=== PATIENT | male | born 1975 | race Caucasian/White ===

== ENCOUNTER 2017-08-04 20:58 | Emergency (ER) | payer SELFPAY ==
[2017-08-04 21:08] VITALS: BP 138/92
--- NOTE | 2017-08-04 23:42 | EDM.PDOC ---
ED HPI GENERAL MEDICAL PROBLEM - General Chief Complaint: Lower Extremity Injury/Pain Stated Complaint: POSS FOOT INJURY Time Seen by Provider: 08/04/17 21:05 Source of Information: Reports: Patient, Family (), RN Notes Reviewed History Limitations: Reports: No Limitations - History of Present Illness INITIAL COMMENTS - FREE TEXT/NARRATIVE: The patient states that he developed swelling, erythema, and pain to the dorsal/ lateral aspect of his left foot yesterday morning, 08/03/2017. He did not injure it. No prior similar symptoms. No recent fever. The patient's PCP is Aria Lopez. Left Feet Pain Score (Numeric/FACES): 8 - Related Data Allergies Allergy/AdvReac Type Severity Reaction Status Date / Time No Known Allergies Allergy Verified 08/04/17 21:04 Home Meds: Home Meds Lisinopril 30 mg PO DAILY 02/03/16 [History] atorvaSTATin Calcium [Atorvastatin Calcium] 80 mg PO BEDTIME 02/03/16 [History] metFORMIN [Glucophage] 1,000 mg PO BIDMEALS 02/03/16 [History] Metoprolol Succinate [Toprol XL] 50 mg PO DAILY 02/16/16 [History] Furosemide [Lasix] 40 mg PO DAILY 03/24/16 [History] Naproxen 1 tab PO Q12HR #14 tablet 03/24/16 [Rx] Past Medical History HEENT History: Reports: Impaired Vision Other HEENT History: wears contacts Cardiovascular History: Reports: High Cholesterol, Hypertension Gastrointestinal History: Reports: GERD 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 History: Reports: Renal Calculus Musculoskeletal History: Reports: Gout (Podagra) Endocrine/Metabolic History: Reports: Diabetes, Type II - Past Surgical History HEENT Surgical History: Reports: Tonsillectomy Musculoskeletal Surgical History: Reports: Other (See Below) (Right forearm surgery) Social & Family History - Tobacco Use Smoking Status *Q: Never Smoker Second Hand Smoke Exposure: No - Alcohol Use Alcohol Use History: Yes Alcohol Use Frequency: Socially - Recreational Drug Use Recreational Drug Use: No - Living Situation & Occupation Living situation: Reports: , with Spouse, with Family (6 kids) 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) Review of Systems - Review of Systems Review Of Systems: See Below Constitutional: Reports: No Symptoms Eyes: Reports: No Symptoms Ears: Reports: No Symptoms Nose: Reports: No Symptoms Mouth/Throat: Reports: No Symptoms Respiratory: Reports: No Symptoms Cardiovascular: Reports: No Symptoms GI/Abdominal: Reports: No Symptoms 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: Reports: No Symptoms Musculoskeletal: Reports: No Symptoms Skin: Reports: No Symptoms Neurological: Reports: No Symptoms Psychiatric: Reports: No Symptoms ED EXAM, GENERAL - Physical Exam Exam: See Below Exam Limited By: No Limitations General Appearance: Alert, WD/WN, No Apparent Distress Extremities: Other (Swollen and erythematous area to the dorsolateral aspect of the left foot, measuring approximate 5 cm diameter. It is quite tender to palpation. Neurovascular status of the left foot is intact.) Course - Vital Signs Last Recorded V/S: Last Vital Signs Temp 36.6 C 08/04/17 21:05 Pulse 108 H 08/04/17 21:05 Resp 16 08/04/17 21:05 BP 138/92 H 08/04/17 21:05 Pulse Ox 98 08/04/17 21:05 - Orders/Labs/Meds Orders: Active Orders 24 hr Category Date Time Status Foot Comp Min 3V Lt [CR] Stat Exams 08/04/17 21:27 Taken DME for Discharge [COMM] Stat Oth 08/04/17 23:49 Ordered Meds: Medications Discontinued Medications Generic Name Dose Route Start Last Admin Trade Name Freq PRN Reason Stop Dose Admin Ibuprofen 800 mg 08/04/17 23:43 Motrin PO 08/04/17 23:44 ONETIME ONE - Re-Assessments/Exams Free Text/Narrative Re-Assessment/Exam: 08/04/17 23:37 4 view radiographs of the left foot is read by [facility] as "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 The patient states that he might have had an injury 20 years ago when some furniture dropped on his foot , but he never had it evaluated. The patient's asked what could be done about it now. I am recommending that the patient take an [id number] NSAID , such as ibuprofen, and follow-up with Dr. Senior to discuss orthopedic options, if any. The patient shook his head, stating that he does not have insurance. I will have the patient fitted for a CAM walker boot. 08/04/17 23:50 Notified by nurse Menezes that the patient left the ED without waiting for the Cam Walker boot or his discharge instructions. Departure - Departure Time of Disposition: 23:45 Disposition: Home, Self-Care 01 Condition: Good Clinical Impression: Fracture of metatarsal bone of left foot with nonunion - Discharge Information Instructions: Metatarsal Fracture Referrals: Aria Lopez PA [Primary Care Provider] - Vishal Senior MD [Physician] - Forms: ED Department Discharge Additional Instructions: You were seen in the emergency room for a painful swelling and redness to the back of your left foot. Workup in the ER included x-rays of your foot. The x-rays show an old fracture of your 4th metatarsal bone that has never healed. Take [id number] ibuprofen 3-4 tablets (600-800mg) every 8 hours, with food , as needed for discomfort. Wear the Cam Walker boot whenever walking around. Follow-up with the Orthopedic Surgeon Dr. Senior to discuss treatment options. If any other problems, please do not hesitate to return to the ER. - My Orders Last 24 Hours: My Active Orders 08/04/17 21:27 Foot Comp Min 3V Lt [CR] Stat 08/04/17 23:49 DME for Discharge [COMM] Stat - Assessment/Plan Last 24 Hours: My Active Orders 08/04/17 21:27 Foot Comp Min 3V Lt [CR] Stat 08/04/17 23:49 DME for Discharge [COMM] Stat
[2017-08-04] MEDS ORDERED: Ibuprofen 800 MG Tab PO ONE (23:43)
--- NOTE | 2017-08-05 08:33 | CR ---
Left foot: Three views of the left foot were obtained. Fracture is identified within the base of the fourth metatarsal which appears to be ununited. Mild soft tissue swelling is noted. Small plantar spur is seen. No acute fracture is appreciated. Impression: 1. Ununited fracture which appears old involving the proximal shaft of the fourth metatarsal. 2. Soft tissue swelling and small plantar spur. Diagnostic code #3
== END 2017-08-04 23:45 | disposition home or self-care (01) ==
LOC: JD.ED 20:58
DX: S92.342A Displaced fracture of fourth metatarsal bone, left foot, initial encounter for closed fracture (principal); I10 Essential (primary) hypertension; E78.00 Pure hypercholesterolemia, unspecified; E11.9 Type 2 diabetes mellitus without complications; Z87.442 Personal history of urinary calculi; Z98.890 Other specified postprocedural states; Z79.84 Long term (current) use of oral hypoglycemic drugs; Z79.899 Other long term (current) drug therapy; W20.8XXA Other cause of strike by thrown, projected or falling object, initial encounter
CPT/HCPCS: 73630-26-LT; 73630-LT; 99283; 99284

== ENCOUNTER 2017-12-09 07:34 | Emergency (ER) | payer SELFPAY ==
[2017-12-09 07:42] VITALS: BP 128/91
--- NOTE | 2017-12-09 08:07 | EDM.PDOC ---
ED HPI GENERAL MEDICAL PROBLEM - General Chief Complaint: Skin Complaint Stated Complaint: SWOLLEN NECK Time Seen by Provider: 12/09/17 07:57 Source of Information: Reports: Patient History Limitations: Reports: No Limitations - History of Present Illness INITIAL COMMENTS - FREE TEXT/NARRATIVE: The patient presents with edema and pain to the left jaw near the ear. He noticed this about 2 days ago. He has sinus pressure and ear pressure. He has been dealing with a viral upper respiratory infection for about a week. He has no fever or chills. He has no pain in his teeth. He has sinus congestion and runny nose. He has no hearing loss. Onset: Gradual Duration: Day(s): (2) Location: Reports: Neck (and left proximal jaw) Quality: Reports: Sharp Severity: Moderate Improves with: Reports: None Worsens with: Reports: None Associated Symptoms: Reports: No Other Symptoms left posterior ear Pain Score (Numeric/FACES): 5 - Related Data Allergies Allergy/AdvReac Type Severity Reaction Status Date / Time No Known Allergies Allergy Verified 12/09/17 07:42 Home Meds: Home Meds Lisinopril 30 mg PO DAILY 02/03/16 [History] atorvaSTATin Calcium [Atorvastatin Calcium] 80 mg PO BEDTIME 02/03/16 [History] metFORMIN [Glucophage] 1,000 mg PO BIDMEALS 02/03/16 [History] Metoprolol Succinate [Toprol XL] 50 mg PO DAILY 02/16/16 [History] Furosemide [Lasix] 40 mg PO DAILY 03/24/16 [History] Amoxicillin 1,000 mg PO BID #40 tab 12/09/17 [Rx] Gabapentin [Neurontin] 100 mg PO TID 12/09/17 [History] Past Medical History HEENT History: Reports: Impaired Vision Other HEENT History: wears contacts Cardiovascular History: Reports: High Cholesterol, Hypertension Respiratory History: Reports: Bronchitis, Recurrent Gastrointestinal History: Reports: GERD 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 History: Reports: Renal Calculus Musculoskeletal History: Reports: Gout Endocrine/Metabolic History: Reports: Diabetes, Type II - Infectious Disease History Infectious Disease History: Reports: Influenza - Past Surgical History HEENT Surgical History: Reports: Tonsillectomy Social & Family History - Family History Family Medical History: Noncontributory - Tobacco Use Smoking Status *Q: Never Smoker Second Hand Smoke Exposure: No - Caffeine Use Caffeine Use: Reports: Coffee - Recreational Drug Use Recreational Drug Use: No - Living Situation & Occupation Living situation: Reports: , with Spouse, with Family (6 kids) 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 He has pain upon palpation and edema to the angle of the left jaw. He has sinus pressure upon palpation.) Head: Atraumatic, Normocephalic Neck: Normal Inspection Respiratory/Chest: No Respiratory Distress, Lungs Clear, Normal Breath Sounds Cardiovascular: Regular Rate, Rhythm, No Edema, No Murmur GI/Abdominal: Soft, Non-Tender, No Organomegaly, No Mass Extremities: Normal Inspection Neurological: Alert, Oriented, No Motor/Sensory Deficits Course - Vital Signs Last Recorded V/S: Last Vital Signs Temp 97.6 F 12/09/17 07:38 Pulse 73 12/09/17 07:38 Resp 18 12/09/17 07:38 BP 128/91 H 12/09/17 07:38 Pulse Ox 97 12/09/17 07:38 Departure - Departure Time of Disposition: 08:10 Disposition: Home, Self-Care 01 Condition: Good Clinical Impression: Reactive lymphadenopathy Sinusitis Qualifiers: Sinusitis location: unspecified location Chronicity: acute Recurrence: non- recurrent Qualified Code(s): J01.90 - Acute sinusitis, unspecified - Discharge Information Prescriptions: Amoxicillin 1,000 mg PO BID #40 tab Referrals: Aria Lopez PA [Primary Care Provider] - 1 Week Additional Instructions: Take tylenol or motrin for any pain. Take the amoxicillin 2 pills 2 times per day for 10 days. Please return if you are worse or see Aria Lopez.
== END 2017-12-09 08:25 | disposition home or self-care (01) ==
LOC: JD.ED 07:34
DX: J01.90 Acute sinusitis, unspecified (principal); E78.00 Pure hypercholesterolemia, unspecified; I10 Essential (primary) hypertension; E11.9 Type 2 diabetes mellitus without complications; Z79.899 Other long term (current) drug therapy; Z79.84 Long term (current) use of oral hypoglycemic drugs
CPT/HCPCS: 99283

== ENCOUNTER 2018-02-18 09:24 | Emergency (ER) | payer BC ==
[2018-02-18 09:31] VITALS: BP 134/99
[2018-02-18] MEDS ORDERED: Tetracaine HCl/PF 0.5% 4 ML Bottle EYERT ONE ×2 (09:39)
[2018-02-18] MEDS ORDERED: Erythromycin Base 0.5% Ophth Oint 1 GM Tube EYERT ONE (09:40)
[2018-02-18] MEDS ORDERED: Benoxinate/Fluorescein 0.4-0.25% Ophth Soln 5 ML Bottle EYERT SCH (09:45)
[2018-02-18] MEDS ORDERED: Fluorescein 0.6 MG Ophth Strip EYERT ONE (09:49)
[2018-02-18] MEDS ORDERED: Fluorescein 0.6 MG Ophth Strip ONE (09:50)
--- NOTE | 2018-02-18 10:10 | EDM.PDOC ---
ED HPI GENERAL MEDICAL PROBLEM - General Chief Complaint: Eye Problems Stated Complaint: RT EYE PAIN Time Seen by Provider: 02/18/18 09:40 Source of Information: Reports: Patient History Limitations: Reports: No Limitations - History of Present Illness INITIAL COMMENTS - FREE TEXT/NARRATIVE: 42 y/o M presents with R eye pain. He is a contact lens user. yesterday was driving and there was a lot of scoria dust. He thinks he got dust in his eye. He did rinse eye out when he got home. Has had increasing pain in the R eye since yesterday. Removed contact lens when he arrived home and has not replaced it. Has watery discharge of the eye. Also has some eye pain and photophobia. No additional complaint. No vision change Right Eye Pain Score (Numeric/FACES): 6 - Related Data Allergies Allergy/AdvReac Type Severity Reaction Status Date / Time No Known Allergies Allergy Verified 02/18/18 09:32 Home Meds: Home Meds Lisinopril 30 mg PO DAILY 02/03/16 [History] atorvaSTATin Calcium [Atorvastatin Calcium] 80 mg PO BEDTIME 02/03/16 [History] metFORMIN [Glucophage] 1,000 mg PO BIDMEALS 02/03/16 [History] Metoprolol Succinate [Toprol XL] 50 mg PO DAILY 02/16/16 [History] Furosemide [Lasix] 40 mg PO DAILY 03/24/16 [History] Ibuprofen [IJP: Ibuprofen] 800 mg PO .EVERY 8 HOURS PRN #30 tab 02/18/18 [Rx] Polymyxin B Sulf/Trimethoprim [Polytrim Eye Drops] 2 drp OP Q3HR 10 Days #1 bottle 02/18/18 [Rx] oxyCODONE 5 mg PO QID PRN #12 tab 02/18/18 [Rx] Past Medical History HEENT History: Reports: Impaired Vision Other HEENT History: wears contacts Cardiovascular History: Reports: High Cholesterol, Hypertension Respiratory History: Reports: Bronchitis, Recurrent Gastrointestinal History: Reports: GERD 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 History: Reports: Renal Calculus Musculoskeletal History: Reports: Gout Endocrine/Metabolic History: Reports: Diabetes, Type II - Infectious Disease History Infectious Disease History: Reports: Influenza - Past Surgical History HEENT Surgical History: Reports: Tonsillectomy Social & Family History - Family History Family Medical History: Noncontributory - Tobacco Use Smoking Status *Q: Never Smoker Second Hand Smoke Exposure: No - Caffeine Use Caffeine Use: Reports: Coffee - Recreational Drug Use Recreational Drug Use: No - Living Situation & Occupation Living situation: Reports: , with Spouse, with Family (6 kids) 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) ED ROS GENERAL - Review of Systems Review Of Systems: See Below Constitutional: Denies: Fever HEENT: Reports: Contact Lenses, Eye Pain Respiratory: Reports: No Symptoms Cardiovascular: Reports: No Symptoms Skin: Reports: No Symptoms ED EXAM GENERAL W FULL EYE - Physical Exam Exam: See Below Exam Limited By: No Limitations General Appearance: Alert, WD/WN, No Apparent Distress Eye Exam: Bilateral Eye: EOMI, PERRL Eyelids: Right: Normal Appearance (mild upper lid edema, no erythema), Lid Everted for Exam (no visible foreign body) Conjunctiva & Sclera: Right: Conjunctival Edema, Discharge (watery), Injected Cornea Exam: Right: Normal Appearance, Examined with Flourescein (punctate defect of central cornea, tiny, less than 1mm) Pupillary Reaction: Bilateral: Brisk Anterior Chamber: Bilateral: Normal Appearance Ears: Normal External Exam Nose: Normal Inspection Throat/Mouth: Normal Voice Head: Atraumatic, Normocephalic Neck: Normal Inspection Respiratory/Chest: No Respiratory Distress Psychiatric: Normal Affect, Normal Mood Skin Exam: Warm, Dry, Normal Color, No Rash Course - Vital Signs Last Recorded V/S: Last Vital Signs Temp 37.1 C 02/18/18 09:30 Pulse 90 02/18/18 09:30 Resp 17 02/18/18 09:30 BP 134/99 H 02/18/18 09:30 Pulse Ox 96 02/18/18 09:30 - Orders/Labs/Meds Meds: Medications Discontinued Medications Generic Name Dose Route Start Last Admin Trade Name Jaswinderq PRN Reason Stop Dose Admin Erythromycin 1 gm 02/18/18 09:40 02/18/18 09:45 Erythromycin 0.5% Ophth Oint EYERT 02/18/18 09:41 1 gm ONETIME ONE Administration Fluorescein Sodium Confirm 02/18/18 09:50 02/18/18 10:23 Ful-Blossom Administered 02/18/18 09:51 Not Given Dose 1.2 mg .ROUTE .STK-MED ONE Fluorescein Sodium 1.2 mg 02/18/18 09:49 02/18/18 10:29 Ful-Blossom EYERT 02/18/18 09:50 1.2 mg ONETIME ONE Administration Fluorescein Sodium/Benoxinate HCl 2 ml 02/18/18 09:45 02/18/18 09:46 Fluress Ophth Soln EYERT Not Given STAT JAD Tetracaine HCl 2 ml 02/18/18 09:39 02/18/18 09:46 Tetracaine 0.5% Steri-Unit Aziza EYERT 02/18/18 09:40 Not Given ASDIRECTED ONE Tetracaine HCl 3 ml 02/18/18 09:39 02/18/18 09:45 Tetracaine 0.5% Steri-Unit Aziza EYERT 02/18/18 09:40 3 ml ASDIRECTED ONE Administration - Re-Assessments/Exams Free Text/Narrative Re-Assessment/Exam: 02/18/18 10:35 Patient does have a punctate corneal abrasion centered directly over the pupil. I think this could be contributing to his photophobia. He also has conjunctival injection/inflammation and watery discharge. Will treat with polytrim, pain control, and [facility] eye doctor f/u. Discussed return precautions for any worsening symptoms. Departure - Departure Time of Disposition: 10:37 Disposition: Home, Self-Care 01 Clinical Impression: Conjunctivitis Qualifiers: Conjunctivitis type: acute Acute conjunctivitis type: unspecified Laterality: right Qualified Code(s): H10.31 - Unspecified acute conjunctivitis, right eye Corneal abrasion Qualifiers: Encounter type: initial encounter Laterality: right Qualified Code(s): S05.01XA - Injury of conjunctiva and corneal abrasion without foreign body, right eye, initial encounter - Discharge Information Prescriptions: Polymyxin B Sulf/Trimethoprim [Polytrim Eye Drops] 2 drp OP Q3HR 10 Days #1 bottle Ibuprofen [IJP: Ibuprofen] 800 mg PO .EVERY 8 HOURS PRN #30 tab PRN Reason: Pain oxyCODONE 5 mg PO QID PRN #12 tab PRN Reason: Pain Instructions: Corneal Abrasion, [id number] Referrals: Aria Lopez PA [Primary Care Provider] - Forms: ED Department Discharge Additional Instructions: 1. Use polytrim antibiotic drops every 3 hours while awake 2. Take ibuprofen as needed for pain. Take oxycodone as needed for severe pain. No driving/working while taking oxycodone as it may make you drowsy or confused. 3. Follow up with your eye doctor as soon as possible, ideally tomorrow. 4. No contact lens use until eye has been back to normal for at least a few days , or until cleared by your eye doctor.
== END 2018-02-18 10:34 | disposition home or self-care (01) ==
LOC: JD.ED 09:24
DX: S05.01XA Injury of conjunctiva and corneal abrasion without foreign body, right eye, initial encounter (principal); H10.31 Unspecified acute conjunctivitis, right eye; E78.00 Pure hypercholesterolemia, unspecified; I10 Essential (primary) hypertension; E11.9 Type 2 diabetes mellitus without complications; Z79.84 Long term (current) use of oral hypoglycemic drugs; Z79.899 Other long term (current) drug therapy; X58.XXXA Exposure to other specified factors, initial encounter
CPT/HCPCS: 99283; A9270

== ENCOUNTER 2019-02-25 18:36 | Emergency (ER) | payer OTHER, BC ==
[2019-02-25 18:56] VITALS: BP 129/88
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
--- NOTE | 2019-02-25 20:05 | CT ---
CT cervical spine Technique: Multiple axial sections through the cervical spine were obtained from above C1 inferiorly to the top of T2. Reconstructed coronal and sagittal images were reviewed. Comparison: Previous cervical spine plain film study performed on the same day (6:32 PM). Findings: Diffuse disc space narrowing is noted at C3-4 through T1-2. Anterior osteophytes are seen at these same levels. Slight posterior osteophytes at C5-6 and C6-7. Fracture is noted within the tip of the spinous process of T1. Uncertain if this is acute or old. No other findings are seen to indicate acute fracture. Incomplete arch is noted posteriorly at C1. Mild diffuse degenerative apophyseal change is seen throughout the cervical spine. Posterolateral spurring is noted at C3-4 to the right side. Moderate narrowing of the right neural foramina noted at C5-6. Mild left-sided neural foraminal stenosis is noted at C6-7. Other neural foramina are felt to be fairly well patent. No abnormal subluxation is seen. Degenerative spurring is noted within the C3-4 through C6-7 uncovertebral joints. Impression: 1. Fracture within the tip of the spinous process of T1. Uncertain if this is due to old or acute avulsion injury. Please correlate with the patient's symptoms. 2. Degenerative change as noted above. No other acute abnormality is appreciated. Diagnostic code #3
--- NOTE | 2019-02-25 20:05 | CT ---
Head CT Technique: Multiple axial sections through the brain were obtained. Intravenous contrast was not utilized. Comparison: No prior intracranial imaging. Findings: Ventricles along with basal cisterns and sulci over the convexities are within normal limits for the patient's age. No abnormal parenchymal densities are seen. No evidence of intracranial hemorrhage. No midline shift or mass effect is seen. Bone window settings were reviewed which shows no acute calvarial abnormality. Mucosal thickening or possibly retention cyst is noted within the left maxillary sinus measuring 1.9 cm. Very minimal mucosal thickening is seen within the right maxillary sinus. No air-fluid level are seen within the paranasal sinuses. Impression: 1. Minimal sinus findings which are felt to be incidental. 2. No acute intracranial abnormality is appreciated. No skull fracture is seen. Diagnostic code #2
--- NOTE | 2019-02-26 08:26 | CR ---
Thoracic spine: AP, lateral and swimmer's views of the thoracic spine were obtained. Disc space narrowing is seen within the cervical spine as well as throughout the thoracic spine. Mild scoliosis is noted. Scattered endplate osteophytes are seen within the thoracic spine anteriorly and laterally. Vertebral body heights are maintained. No discrete fracture or subluxation is appreciated. Impression: 1. Degenerative change and scoliosis. Nothing acute is definitely appreciated. Diagnostic code #2
== END 2019-02-25 20:41 | disposition home or self-care (01) ==
LOC: JD.ED 18:36
DX: S22.008A Other fracture of unspecified thoracic vertebra, initial encounter for closed fracture (principal); S09.90XA Unspecified injury of head, initial encounter; S13.9XXA Sprain of joints and ligaments of unspecified parts of neck, initial encounter; G58.8 Other specified mononeuropathies; E78.00 Pure hypercholesterolemia, unspecified; R42 Dizziness and giddiness; R20.0 Anesthesia of skin; I10 Essential (primary) hypertension; E11.9 Type 2 diabetes mellitus without complications; R11.2 Nausea with vomiting, unspecified; Z79.899 Other long term (current) drug therapy; Z79.84 Long term (current) use of oral hypoglycemic drugs; V57.5XXA Driver of pick-up truck or van injured in collision with fixed or stationary object in traffic accident, initial encounter
CPT/HCPCS: 70450; 70450-26; 72070; 72070-26; 72125; 72125-26; 99283; 99284-25

== ENCOUNTER 2020-03-17 15:46 | Emergency (ER) | payer BC ==
[2020-03-17 16:02] VITALS: BP 149/89; PULSE 95
[2020-03-17] MEDS ORDERED: Colchicine 0.6 MG Tab PO STA (16:17)
[2020-03-17] MEDS ORDERED: Acetaminophen/HYDROcodone 325-5 MG Tab PO ONE (16:19)
--- NOTE | 2020-03-17 16:26 | EDM.PDOC ---
ED HPI GENERAL MEDICAL PROBLEM - General Chief Complaint: Lower Extremity Injury/Pain Stated Complaint: RT FOOT ANKLE AND KNEE SWELLING Time Seen by Provider: 03/17/20 15:57 Source of Information: Reports: Patient History Limitations: Reports: No Limitations - History of Present Illness INITIAL COMMENTS - FREE TEXT/NARRATIVE: Mr. Nj is a very pleasant 44-year-old man with a past medical history significant for obesity, diabetes, and presumed gout, who now presents to the ED stating that he developed right great toe pain 2 days ago, 03/16/2020, with the pain then extending to his right foot, ankle, and knee yesterday. The patient has had similar right great toe pain in the past, presumably due to gout , although he has never had an inflamed joint aspirated. Because of this, he had been prescribed a 30-day course of colchicine 0.6 mg daily that he started on or about 02/05/2020, finishing about 03/05/2020. He did not realize it until yesterday, but he had 2 pills remaining, which he took along with 600 mg of ibuprofen yesterday. These medicines did not help with his pain. No recent injury to his right lower extremity. No recent fever. He denies recent chills, sore throat, ear pain, nasal or sinus congestion, cough, dyspnea , chest pain, palpitations, nausea, vomiting, constipation, diarrhea, abdominal pain, urinary symptoms, recent weight gain or weight loss, recent bloody bowel movements or black bowel movements, headaches, or rashes. Here in the ED, the patient is found to be hemodynamically stable, afebrile, saturating 98% on room air. The patient states that he has never checked his blood glucose. The patient's PCP is Dr. Mounika Blanchard. Right Toe-Hailux Pain Score (Numeric/FACES): 8 - Related Data Allergies Allergy/AdvReac Type Severity Reaction Status Date / Time No Known Allergies Allergy Verified 03/17/20 16:02 Home Meds: Home Meds Lisinopril 30 mg PO DAILY 02/03/16 [History] metFORMIN [Glucophage] 1,000 mg PO BIDMEALS 02/03/16 [History] Metoprolol Succinate [Toprol XL] 50 mg PO DAILY 02/16/16 [History] Furosemide [Lasix] 40 mg PO DAILY 03/24/16 [History] Celecoxib [CeleBREX] 50 mg PO DAILY 02/25/19 [History] DULoxetine [Cymbalta] 90 mg PO DAILY 02/25/19 [History] Rosuvastatin [Crestor] 5 mg PO DAILY 02/25/19 [History] busPIRone [Buspar] 10 mg PO BID 02/25/19 [History] Colchicine 1 tab PO Q12H PRN #10 capsule 03/17/20 [Rx] Esomeprazole Magnesium [Nexium] 40 mg PO DAILY 03/17/20 [History] Glucosamine/Chondr Miranda A Sod [Osteo Bi-Flex Caplet] 1 each PO DAILY 03/17/20 [ History] Past Medical History HEENT History: Reports: Impaired Vision Other HEENT History: wears contacts Cardiovascular History: Reports: High Cholesterol, Hypertension Respiratory History: Reports: Sleep Apnea (nightly CPAP) Gastrointestinal History: Reports: GERD 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 History: Reports: Renal Calculus Musculoskeletal History: Reports: Gout (presumed) Psychiatric History: Reports: Anxiety, Depression Endocrine/Metabolic History: Reports: Diabetes, Type II, Obesity/BMI 30+ - Infectious Disease History Infectious Disease History: Reports: Influenza - Past Surgical History HEENT Surgical History: Reports: Tonsillectomy Musculoskeletal Surgical History: Reports: Other (See Below) (Right forearm surgery) Social & Family History - Family History Family Medical History: Noncontributory - Tobacco Use Smoking Status *Q: Never Smoker - Caffeine Use Caffeine Use: Reports: Coffee - Alcohol Use Alcohol Use History: Yes Alcohol Use Frequency: Socially - Recreational Drug Use Recreational Drug Use: No - Living Situation & Occupation Living situation: Reports: , with Spouse, with Family (6 kids) 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 ED EXAM, GENERAL - Physical Exam Exam: See Below Exam Limited By: No Limitations General Appearance: Alert, WD/WN, No Apparent Distress Extremities: Other (There is mild swelling and mild erythema to the right great MTP joint, that is not present on the left great MTP joint. The joint is exquisitely tender to palpate, particularly on the medial aspect, or with even minor PROM. No visible abnormality to his right ankle, however, he reports significant tenderness to palpation of the medial aspect of his anterior syndesmosis. No other ankle tenderness. The patient also reports tenderness to palpation of his right patella, although there is no visible abnormality to his right knee, such as swelling, erythema, ecchymosis, or abrasion. Neurovascular status of his right lower extremity is intact.) Course - Vital Signs Last Recorded V/S: Last Vital Signs Temp 36.4 C 03/17/20 15:59 Pulse 95 03/17/20 15:59 Resp 16 03/17/20 15:59 BP 149/89 H 03/17/20 15:59 Pulse Ox 98 03/17/20 15:59 - Orders/Labs/Meds Orders: Active Orders 24 hr Category Date Time Status Acetaminophen/HYDROcodone [Bode 325-5 MG] Med 03/17/20 16:19 Once 2 tab PO ONETIME ONE Meds: Medications Discontinued Medications Generic Name Dose Route Start Last Admin Trade Name Freq PRN Reason Stop Dose Admin Colchicine 1.2 mg 03/17/20 16:17 Colcrys PO 03/17/20 16:18 ONETIME STA - Re-Assessments/Exams Free Text/Narrative Re-Assessment/Exam: 03/17/20 16:20 The patient's history and physical examination are most consistent with an acute flare of gout. Because of the patient's history of diabetes, I would prefer to avoid treatment with steroids, and the patient agreed. Ideally, he would have taken 2 tablets of colchicine upfront yesterday, followed by a third tablet, for a total of 1.8 mg, however, he did not have a third tablet available. We will therefore restart his treatment today by giving him 2 tablets of colchicine now, to be followed by a third tablet that we will send home with him, to take in about 1 hour. I will submit a prescription for colchicine, 1 tablet once or twice a day, that he can start tomorrow and continue until he is feeling better. The patient will also be given 2 tablets of Bode here in the ED. I would like him to follow-up with his PCP at the next available appointment. Departure - Departure Time of Disposition: 16:24 Disposition: Home, Self-Care 01 Condition: Good Clinical Impression: Gout flare - Discharge Information *PRESCRIPTION DRUG MONITORING PROGRAM REVIEWED*: Not Applicable *COPY OF PRESCRIPTION DRUG MONITORING REPORT IN PATIENT LUCY: Not Applicable Referrals: Mounika Blanchard MD [Primary Care Provider] - Additional Instructions: You were seen in the emergency room for right great toe pain, that has extended to your right foot and right knee. Based on your history and physical exam, you are most likely suffering from an acute flare of gout. You have been started on the anti-gout medicine colchicine. You were given 1 additional tablet to take home, that you should take around 5:30 this evening. A prescription for colchicine has been sent to the [facility], located in the [employer] [facility]. Take 1 tablet of colchicine either once or twice a day , for the next several days, until your symptoms have resolved. In addition to colchicine, you may also take saht-doe-xvrelri ibuprofen, 3 tablets (600 mg) every 8 hours, with food, as needed for discomfort. Follow-up with your PCP, Dr. Mounika Blanchard, at the next available appointment. If any other problems, please do not hesitate to return to the ER. Sepsis Event Note - Evaluation Sepsis Screening Result: No Definite Risk - Focused Exam Vital Signs: Vital Signs Temp Pulse Resp BP Pulse Ox 03/17/20 15:59 36.4 C 95 16 149/89 H 98 Date Exam was Performed: 03/17/20 Time Exam was Performed: 16:20 - My Orders Last 24 Hours: My Active Orders 03/17/20 16:19 Acetaminophen/HYDROcodone [Bode 325-5 MG] 2 tab PO ONETIME ONE - Assessment/Plan Last 24 Hours: My Active Orders 03/17/20 16:19 Acetaminophen/HYDROcodone [Bode 325-5 MG] 2 tab PO ONETIME ONE
[2020-03-17] MEDS ORDERED: Colchicine 0.6 MG Tab PO ONE (16:28)
== END 2020-03-17 16:59 | disposition home or self-care (01) ==
LOC: JD.ED 15:46
DX: M10.9 Gout, unspecified (principal); I10 Essential (primary) hypertension; E11.9 Type 2 diabetes mellitus without complications; E78.00 Pure hypercholesterolemia, unspecified; K21.9 Gastro-esophageal reflux disease without esophagitis; F41.9 Anxiety disorder, unspecified; F32.9 Major depressive disorder, single episode, unspecified; E66.9 Obesity, unspecified; Z68.41 Body mass index [BMI] 40.0-44.9, adult; Z79.899 Other long term (current) drug therapy; Z79.84 Long term (current) use of oral hypoglycemic drugs
CPT/HCPCS: 99283; A9270

== ENCOUNTER 2020-10-21 06:13 | Day surgery (SDC) | payer BC ==
[~2020-10-21 06:13] MED LIST: Lactated Ringers 1,000 ML IV SCH; Lidocaine 1%/Sod Bicarbonate in NS 8.4% 1 ML Syringe IDERM PRN; Sodium Chloride 0.9% 10 ML Syringe FLUSH PRN
[2020-10-21] MEDS ORDERED: Ropivacaine 0.5% 5 MG/ML 30 ML SDV ONE (06:27)
[2020-10-21] MEDS ORDERED: fentaNYL 100 MCG/2 ML SDV ONE (06:29)
[2020-10-21] MEDS ORDERED: Midazolam 1 MG/ML 2 ML SDV ONE (06:29)
[2020-10-21] MEDS ORDERED: Propofol 200 MG/20 ML SDV ONE (06:29)
[2020-10-21] MEDS ORDERED: Lidocaine 1% 6 ML ONE (06:30)
[2020-10-21] MEDS ORDERED: Succinylcholine/Sod PF 100 MG/5 ML SYRINGE IV ONE (06:36)
--- NOTE | 2020-10-21 06:51 | PCM.PREANE ---
Preanesthetic Assessment - Procedure Proposed Procedure: Left shoulder arthroscopy - Anesthesia/Transfusion/Family Hx Intubation History: History of Difficulty Intubation - Review of Systems General: No Symptoms Pulmonary: No Symptoms Cardiovascular: No Symptoms Gastrointestinal: No Symptoms Neurological: No Symptoms Other: Reports: None - Physical Assessment NPO Status Date: 10/20/20 NPO Status Time: 21:00 ASA Class: 3 Mental Status: Alert & Oriented x3 Airway Class: Mallampati = 4 Dentition: Reports: Normal Dentition Thyro-Mental Finger Breadths: 3 Mouth Opening Finger Breadths: 3 ROM/Head Extension: Limited/Partial (short neck, redundant tissues, difficult a/w possible) Lungs: Clear to Auscultation, Normal Respiratory Effort Cardiovascular: Regular Rate, Regular Rhythm - Lab Values: Laboratory Last Values POC Glucose 114 mg/dL (70-105) H 10/21/20 06:28 SARS-CoV-2 (PCR) Not detected (NOT DETECT) 10/17/20 11:30 MRSA (PCR) Negative 10/18/20 10:20 - Allergies Allergies/Adverse Reactions: Allergies Allergy/AdvReac Type Severity Reaction Status Date / Time meloxicam [From [facility]] AdvReac "kidney Verified 10/21/20 07:01 concerns" - Anesthesia Plan Beta Sammy: Metoprolol Med Last Dose Date: 10/21/20 Med Last Dose Time: 05:30 - Acknowledgements Anesthesia Type Planned: General Anesthesia, Regional Block Pt an Appropriate Candidate for the Planned Anesthesia: Yes Alternatives and Risks of Anesthesia Discussed w Pt/Guardian: Yes Pt/Guardian Understands and Agrees with Anesthesia Plan: Yes PreAnesthesia Questionnaire HEENT History: Reports: Allergic Rhinitis, Impaired Vision Other HEENT History: wears contacts/glasses Cardiovascular History: Reports: High Cholesterol, Hypertension, Other (See Below) Other Cardiovascular History: chest pain, angiogram (negative) Respiratory History: Reports: Sleep Apnea Gastrointestinal History: Reports: Chronic Constipation, GERD, Other (See Below) Other Gastrointestinal History: bloating, acid reflux, anal fistula, transaminitis 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 History: Reports: Renal Calculus [employer] TECHNICAL LEAD History: Reports: None Musculoskeletal History: Reports: Gout, Other (See Below) Other Musculoskeletal History: ac joint bone spurs, foot pain, elbow pain, bilateral hip pain, bilateral shoulder pain, rotator cuff impingement, right lateral epicondylitis, ankle pain and swelling, foot injury, metarsal bone fracture Neurological History: Reports: None Psychiatric History: Reports: Anxiety, Depression, Other (See Below) Other Psychiatric History: insomnia, fatigue, panic attacks Endocrine/Metabolic History: Reports: Diabetes, Type II, Obesity/BMI 30+, Vitamin D Deficiency, Other (See Below) Other Endocrine/Metabolic History: metabolic syndrome Hematologic History: Reports: None Immunologic History: Reports: None Oncologic (Cancer) History: Reports: None Dermatologic History: Reports: None - Infectious Disease History Infectious Disease History: Reports: Influenza - Past Surgical History Head Surgeries/Procedures: Reports: None HEENT Surgical History: Reports: Myringotomy w Tube(s), Tonsillectomy Cardiovascular Surgical History: Reports: None Respiratory Surgical History: Reports: None GI Surgical History: Reports: None Female Surgical History: Reports: None Male Surgical History: Reports: None Endocrine Surgical History: Reports: None Neurological Surgical History: Reports: None Musculoskeletal Surgical History: Reports: Other (See Below) Other Musculoskeletal Surgeries/Procedures:: right arm surgery Oncologic Surgical History: Reports: None - SUBSTANCE USE Tobacco Use Status *Q: Never Tobacco User Recreational Drug Use History: No - HOME MEDS Home Medications: Home Meds metFORMIN [Glucophage] 1,000 mg PO BIDMEALS 02/03/16 [History] Metoprolol Succinate [Toprol XL] 50 mg PO DAILY 02/16/16 [History] Furosemide [Lasix] 40 mg PO DAILY 03/24/16 [History] DULoxetine [Cymbalta] 30 mg PO DAILY 02/25/19 [History] ALPRAZolam [Xanax] 0.5 - 1 mg PO DAILY PRN 10/18/20 [History] Celecoxib 200 mg PO BID 10/18/20 [History] DULoxetine [Cymbalta] 60 mg PO DAILY 10/18/20 [History] Ibuprofen 200 - 600 mg PO Q6HR PRN 10/18/20 [History] Magnesium 250 mg PO DAILY 10/18/20 [History] Multivitamin 1 tab PO DAILY 10/18/20 [History] Pantoprazole Sodium [Protonix] 40 mg PO DAILY 10/18/20 [History] Potassium Gluconate [Potassium] 99 mg PO DAILY 10/18/20 [History] Rosuvastatin Calcium [Crestor] 40 mg PO DAILY 10/18/20 [History] busPIRone [Buspar] 15 mg PO DAILY 10/18/20 [History] lisinopriL [Lisinopril] 40 mg PO DAILY 10/18/20 [History] Acetaminophen [Tylenol] 650 mg PO Q4H PRN #0 10/21/20 [Rx] Acetaminophen/HYDROcodone [[place] 325-5 MG] 1 - 2 tab PO Q6H PRN #30 tablet 10/21/20 [Rx] Cyclobenzaprine [Flexeril] 10 mg PO BID PRN #10 tab 10/21/20 [Rx] traMADol [Ultram] 50 mg PO QID PRN #0 10/21/20 [Rx] - CURRENT (IN HOUSE) MEDS Current Meds: Current Medications Epinephrine HCl (Adrenalin) 3 mg IRR ONETIME JAD Stop: 10/21/20 16:00 Lactated Ringer's (Ringers, Lactated) 1,000 mls @ 125 mls/hr IV ASDIRECTED JAD Stop: 10/21/20 23:00 Lidocaine/Sodium Bicarbonate (Buffered Lidocaine 1% In Ns 8.4%) 0.25 ml IDERM ONETIME PRN PRN Reason: Prior to IV Start Stop: 10/21/20 18:00 Sodium Chloride (Saline Flush) 10 ml FLUSH ASDIRECTED PRN PRN Reason: Keep Vein Open Stop: 10/21/20 18:00 Discontinued Medications Fentanyl (Sublimaze) Confirm Administered Dose 100 mcg .ROUTE .STK-MED ONE Stop: 10/21/20 06:30 Lidocaine HCl (Xylocaine-Mpf 1%) Confirm Administered Dose 6 mls @ as directed .ROUTE .STK-MED ONE Stop: 10/21/20 06:31 Midazolam HCl (Versed 1 Mg/Ml) Confirm Administered Dose 6 mg .ROUTE .STK-MED ONE Stop: 10/21/20 06:30 Propofol (Diprivan 20 Ml) Confirm Administered Dose 400 mg .ROUTE .STK-MED ONE Stop: 10/21/20 06:30 Ropivacaine (Naropin 0.5%) Confirm Administered Dose 30 ml .ROUTE .STK-MED ONE Stop: 10/21/20 06:28
[2020-10-21] MEDS ORDERED: EPINEPHrine 1 MG/ML 30 ML MDV IRR SCH (07:00)
[2020-10-21] MEDS ORDERED: Lactated Ringers 1,000 ML ONE (08:15)
[2020-10-21] MEDS ORDERED: ceFAZolin 1 GM Vial ONE (08:16)
[2020-10-21] MEDS ORDERED: Dexmedetomidine 200 MCG/2 ML SDV ONE (08:36)
[2020-10-21] MEDS ORDERED: Ondansetron 4 MG/2 ML SDV ONE (08:36)
[2020-10-21] MEDS ORDERED: Dexamethasone 4 MG/ML 5 ML MDV ONE (08:37)
--- NOTE | 2020-10-21 09:09 | PCM.PRNOTE ---
- Free Text/Narrative Note: Postoperative regional pain control requested by surgeon. Pre-op Dx: Left shoulder rotator cuff tear Surgical procedure: Left shoulder arthroscopy with rotator cuff repair Procedure: Left Interscalene block with U/S guidance Requesting physician: Dr. Vishal Marquez� Risks and benefits discussed with the patient preoperatively including infection, bleeding, incomplete or failed block, possible nerve damage, local anesthetic toxicity. Chart reviewed, VS stable. Permit signed. Patient in preoperative room, stable , alert and awake. Time out performed at 07:17. Oxygen 3L via NC. Left side of the neck was prepped with Chloraprep x 1 and allowed to dry. Midazolam IV 4 mg given incrementally. Under aseptic technique, the brachial plexus was identified under ultrasound prior to needle insertion. Local infiltration with 2 mls of 1% Lidocaine. 4" Stimuplex needle #22 G was inserted under US guidance. Neuromuscular response of biceps contraction and forearm twitching elicited at 0.6 mA. Under direct visualization of needle tip the injection of 0.5% Ropivacaine (23 ml) with 1:200k epinephrine, 8 mg of Dexamethasone and 35 mcg of Dexmedetomidine, total of 25 mls in divided doses, maintaining negative aspiration was completed without problems. No local anesthetic toxicity was noted. Patient is awake, stable and tolerated the procedure well. Start: 07:17 End: 07:27 Please see the attached U/S image
[2020-10-21] MEDS ORDERED: HYDROmorphone 0.5 MG/0.5 ML Syringe IVPUSH PRN (09:11)
[2020-10-21] MEDS ORDERED: fentaNYL 100 MCG/2 ML SDV IVPUSH PRN (09:11)
--- NOTE | 2020-10-21 10:16 | PCM.POSTAN ---
POST ANESTHESIA ASSESSMENT - MENTAL STATUS Mental Status: Somnolent - VITAL SIGNS Vital Signs: Last Vital Signs Temp 96.8 F L 10/21/20 10:06 Pulse 91 10/21/20 10:06 Resp 25 H 10/21/20 10:06 BP 138/73 10/21/20 10:06 Pulse Ox 93 L 10/21/20 10:06 - RESPIRATORY Respiratory Status: Respiratory Rate WNL, Airway Patent, O2 Saturation Stable, Supplemental Oxygen (CPAP is being set by RT) - CARDIOVASCULAR CV Status: Pulse Rate WNL, Blood Pressure Stable - GASTROINTESTINAL GI Status: No Symptoms - PAIN Pain Score: 0 (post ISB) - POST OP HYDRATION Hydration Status: Adequate & Stable
[2020-10-21 13:17] VITALS: BP 114/74; PULSE 78
--- NOTE | 2020-10-21 13:33 | PCM48HPAN ---
Post Anesthesia Note - EVALUATION WITHIN 48HRS OF ANESTHETIC Vital Signs in Normal Range: Yes Patient Participated in Evaluation: Yes Respiratory Function Stable: Yes (94% SpO2 on CPAP) Airway Patent: Yes Cardiovascular Function Stable: Yes Hydration Status Stable: Yes Pain Control Satisfactory: Yes Nausea and Vomiting Control Satisfactory: Yes Mental Status Recovered: Yes Vital Signs: Last Vital Signs Temp 97.2 F 10/21/20 12:57 Pulse 78 10/21/20 12:57 Resp 17 10/21/20 12:57 BP 114/74 10/21/20 12:57 Pulse Ox 94 L 10/21/20 12:57 - COMMENTS/OBSERVATIONS Free Text/Narrative:: Preparing to be discharged home
--- NOTE | 2020-10-29 22:01 | PCM.OPNOTE ---
- General Post-Op/Procedure Note Date of Surgery/Procedure: 10/21/20 Operative Procedure(s): left shoulder video arthroscopy with rotator cuff repair, subacromial decompression, biceps tenotomy and extensive debridement Pre Op Diagnosis: left shoulder rotator cuff tear with synovitis and subacromial impingement with biceps tendinitis Post-Op Diagnosis: Same Anesthesia Technique: General ET Tube, Regional Block Primary Surgeon: Vishal Senior Anesthesia Provider: Alex Gutierrez Demand Planner: Massiel Trevizo EBL in mLs: 5 Complications: None Condition: Good
--- NOTE | 2020-10-30 16:03 | OR ---
DATE OF OPERATION: 10/21/2020 SURGEON: Vishal Senior MD OPERATION PERFORMED: Left shoulder video arthroscopy with rotator cuff repair, subacromial decompression, biceps tenotomy, and extensive debridement. PREOPERATIVE DIAGNOSIS: Left shoulder rotator cuff tear with synovitis and subacromial impingement with biceps tendinitis. POSTOPERATIVE DIAGNOSIS: Left shoulder rotator cuff tear with synovitis and subacromial impingement with biceps tendinitis. ANESTHESIA: General endotracheal intubation with regional interscalene block. ANESTHESIA PROVIDER: Miranda Conway [employer] EXAMINER: Massiel Trevizo PA-C ESTIMATED BLOOD LOSS: Less than 5 mL. COMPLICATIONS: None. CONDITION: Stable. DESCRIPTION OF PROCEDURE: The patient was identified in the preoperative holding area. Proper site was marked and identified by the surgeon. The patient was taken back to the operating theater, where after adequate anesthesia, the patient was placed in the lazy right lateral decubitus position. Wedge was placed posteriorly. The patient was secured to the table. It did take significantly more time positioning the patient secondary to his BMI and body habitus. At this time, left upper extremity was sterilely prepped and draped in the usual sterile fashion. OR time-out was performed. The patient received 2 g of IV Ancef, 15 pounds of traction was applied to the left upper extremity. Standard posterior incision was made. Scope trocar was introduced to the glenohumeral joint. The patient did have a minor amount of grade 2 chondromalacia of the central portion of the glenoid, but otherwise no signs of chondromalacia. The patient's biceps tendon was significantly partially torn near its attachment. At this time, an anterior portal was created with the use of a spinal needle from outside-in technique, which we had to use a longer spinal needle secondary to the patient's body habitus and was significantly more difficult with use of longer instruments. At this time, a biceps tenotomy was performed and a significant extensive debridement was done of the synovitis as well as remaining loose fibers of the labrum. Subscapularis tendon was intact, and there was no other pathology in the joint. The patient was noted to have a near full-thickness rotator cuff tear of the anterior supraspinatus. The scope trocar was then placed into the subacromial space. Anterior portal was placed in subacromial space. A lateral portal was created. At this time, a good bony bleeding bed was created for the tear. All nonviable fibers were resected out and debrided out. The patient was noted to have type 2 acromion so the patient also did undergo subacromial decompression and acromioplasty back to a smooth border with the posterior rim. Two Giovanny medial row anchors, all suture anchors, were placed medially. The 10 limbs of suture then were brought from anterior to posterior with good convergence of the tear. At this time, I decided I would tie all of these medially, cutting 1 limb and then bringing the remaining suture limbs out laterally through 1 lateral row anchor. At this time, it was decided then we would do 2 lateral row anchors, so we did end up doing 2 lateral row anchors. These were then tensioned. Both lateral row anchors were placed. They were sequentially tensioned and was found to have adequate compression across the repair site. The patient did undergo a bursectomy in the subacromial space at this time as well. Excess saline was drained from the shoulder. A 3-0 nylon suture was used for closure of the skin. The patient was placed in a sterile soft dressing and a pillow sling and sent to the PACU in stable condition. Please note that this was a significantly more difficult procedure secondary to the patient's body habitus and use of larger instruments for the procedure secondary to his BMI. MEAGAN /[id number]
== END 2020-10-21 13:11 | disposition home or self-care (01) ==
LOC: JD.SDS 06:13
PROVIDERS: ATTEND Orthopaedic Surgery
DX: M75.122 Complete rotator cuff tear or rupture of left shoulder, not specified as traumatic (principal); M65.812 Other synovitis and tenosynovitis, left shoulder; M25.812 Other specified joint disorders, left shoulder; M75.52 Bursitis of left shoulder; K21.9 Gastro-esophageal reflux disease without esophagitis; I10 Essential (primary) hypertension; E11.9 Type 2 diabetes mellitus without complications; G47.33 Obstructive sleep apnea (adult) (pediatric); E78.2 Mixed hyperlipidemia; E66.01 Morbid (severe) obesity due to excess calories; Z01.812 Encounter for preprocedural laboratory examination; Z20.828 Contact with and (suspected) exposure to other viral communicable diseases; E55.9 Vitamin D deficiency, unspecified; F41.9 Anxiety disorder, unspecified; F32.9 Major depressive disorder, single episode, unspecified; Z79.899 Other long term (current) drug therapy; Z79.84 Long term (current) use of oral hypoglycemic drugs; Z68.42 Body mass index [BMI] 45.0-49.9, adult; Z88.8 Allergy status to other drugs, medicaments and biological substances
CPT/HCPCS: 29823; 29826; 29827; 82962; 87635; 87641; C1713; J0171; J0330; J0690; J1100; J2001; J2250; J2405; J2704; J2795; J3010; J7120; 01630; 64415; U0002

== ENCOUNTER 2020-11-03 11:37 | Emergency (ER) | payer BC ==
[2020-11-03 12:04] VITALS: BP 149/109; PULSE 105
[2020-11-03] MEDS ORDERED: Ketorolac 60 MG/2 ML SDV IM ONE (13:17)
--- NOTE | 2020-11-03 13:21 | EDM.PDOC ---
ED HPI GENERAL MEDICAL PROBLEM - General Chief Complaint: Lower Extremity Injury/Pain Stated Complaint: L KNEE PAIN Time Seen by Provider: 11/03/20 12:01 Source of Information: Reports: Patient, RN Notes Reviewed History Limitations: Reports: No Limitations - History of Present Illness INITIAL COMMENTS - FREE TEXT/NARRATIVE: Patient is a 44-year-old male presenting to the emergency department with complaints of left knee pain. Symptoms began about 2 days ago. He has had no known injury to the knee. States he fell about 6 weeks ago but has not had any problems with his knee since then. Denies any history of chronic knee pain. He has not taken anything for pain thus far today. Left Knee Pain Score (Numeric/FACES): 8 - Related Data Allergies Allergy/AdvReac Type Severity Reaction Status Date / Time meloxicam [From [facility]] AdvReac "kidney Verified 11/03/20 12:04 concerns" Home Meds: Home Meds metFORMIN [Glucophage] 1,000 mg PO BIDMEALS 02/03/16 [History] Metoprolol Succinate [Toprol XL] 50 mg PO DAILY 02/16/16 [History] Furosemide [Lasix] 40 mg PO DAILY 03/24/16 [History] DULoxetine [Cymbalta] 30 mg PO DAILY 02/25/19 [History] ALPRAZolam [Xanax] 0.5 - 1 mg PO DAILY PRN 10/18/20 [History] Celecoxib 200 mg PO BID 10/18/20 [History] DULoxetine [Cymbalta] 60 mg PO DAILY 10/18/20 [History] Ibuprofen 200 - 600 mg PO Q6HR PRN 10/18/20 [History] Magnesium 250 mg PO DAILY 10/18/20 [History] Multivitamin 1 tab PO DAILY 10/18/20 [History] Pantoprazole Sodium [Protonix] 40 mg PO DAILY 10/18/20 [History] Potassium Gluconate [Potassium] 99 mg PO DAILY 10/18/20 [History] Rosuvastatin Calcium [Crestor] 40 mg PO DAILY 10/18/20 [History] busPIRone [Buspar] 15 mg PO DAILY 10/18/20 [History] lisinopriL [Lisinopril] 40 mg PO DAILY 10/18/20 [History] Acetaminophen [Tylenol] 650 mg PO Q4H PRN #0 10/21/20 [Rx] Acetaminophen/HYDROcodone [[place] 325-5 MG] 1 - 2 tab PO Q6H PRN #30 tablet 10/21/20 [Rx] Cyclobenzaprine [Flexeril] 10 mg PO BID PRN #10 tab 10/21/20 [Rx] traMADol [Ultram] 50 mg PO QID PRN #0 10/21/20 [Rx] Naproxen [Naprosyn] 500 mg PO Q12HR 5 Days #10 tab 11/03/20 [Rx] Past Medical History HEENT History: Reports: Allergic Rhinitis, Impaired Vision Other HEENT History: wears contacts/glasses Cardiovascular History: Reports: High Cholesterol, Hypertension Other Cardiovascular History: chest pain, angiogram (negative) Respiratory History: Reports: Sleep Apnea Gastrointestinal History: Reports: Chronic Constipation, GERD, Other (See Below) Other Gastrointestinal History: bloating, acid reflux, anal fistula, transaminitis 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 History: Reports: Renal Calculus 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: 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 Musculoskeletal History: Reports: Gout, Other (See Below) Other Musculoskeletal History: ac joint bone spurs, foot pain, elbow pain, bilateral hip pain, bilateral shoulder pain, rotator cuff impingement, right lateral epicondylitis, ankle pain and swelling, foot injury, metarsal bone fracture Neurological History: Reports: None Psychiatric History: Reports: Anxiety, Depression, Other (See Below) Other Psychiatric History: insomnia, fatigue, panic attacks Endocrine/Metabolic History: Reports: Diabetes, Type II, Obesity/BMI 30+, Vitamin D Deficiency, Other (See Below) Other Endocrine/Metabolic History: metabolic syndrome Hematologic History: Reports: None Immunologic History: Reports: None Oncologic (Cancer) History: Reports: None Dermatologic History: Reports: None - Infectious Disease History Infectious Disease History: Reports: Influenza - Past Surgical History Head Surgeries/Procedures: Reports: None HEENT Surgical History: Reports: Myringotomy w Tube(s), Tonsillectomy Cardiovascular Surgical History: Reports: None Respiratory Surgical History: Reports: None GI Surgical History: Reports: None Male Surgical History: Reports: None Endocrine Surgical History: Reports: None Neurological Surgical History: Reports: None Musculoskeletal Surgical History: Reports: Other (See Below) Other Musculoskeletal Surgeries/Procedures:: right arm surgery, left shoulder surgery - torn bicep and born spur removed Oncologic Surgical History: Reports: None Social & Family History - Family History Family Medical History: No Pertinent Family History - Tobacco Use Tobacco Use Status *Q: Never Tobacco User Second Hand Smoke Exposure: No - Caffeine Use Caffeine Use: Reports: None - Recreational Drug Use Recreational Drug Use: No - Living Situation & Occupation Living situation: Reports: , with Spouse, with Family (6 kids) 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 ED EXAM, GENERAL - Physical Exam Exam: See Below Exam Limited By: No Limitations General Appearance: Alert, WD/WN, No Apparent Distress Respiratory/Chest: No Respiratory Distress, Lungs Clear, Normal Breath Sounds, No Accessory Muscle Use, Chest Non-Tender Cardiovascular: Normal Peripheral Pulses, Regular Rate, Rhythm, No Edema, No Gallop, No JVD, No Murmur, No Rub Extremities: Other (Tenderness to palpation of the anterior knee directly over the joint space. No redness, warmth, or obvious edema noted.) Course - Vital Signs Last Recorded V/S: Last Vital Signs Temp 98 F 11/03/20 12:01 Pulse 105 H 11/03/20 12:01 Resp 16 11/03/20 12:01 BP 149/109 H 11/03/20 12:01 Pulse Ox 97 11/03/20 12:01 - Orders/Labs/Meds Orders: Active Orders 24 hr Category Date Time Status Knee Min 4V Lt [CR] Stat Exams 11/03/20 12:07 Taken - Re-Assessments/Exams Free Text/Narrative Re-Assessment/Exam: Patient is a 44-year-old male presenting to the emergency department with complaints of left knee pain. He has had no known injury. States the pain began about 2 days ago. Exam, there is no obvious redness, warmth, or swelling. He is tender over the anterior joint space. Have ordered an x-ray of the left knee. 11/03/20 13:17 X-ray of the left knee showed no acute abnormalities. Jonathan wrap has been applied to the knee. Recommend ice and elevation. We will give him a shot of Toradol here and then I will send a prescription for Naprosyn. Discussed that he should not take a dose of this until tonight and that he should not take it with meloxicam. He verbalized understanding of this. Discharge instructions as documented. Departure - Departure Time of Disposition: 13:18 Disposition: Home, Self-Care 01 Condition: Good Clinical Impression: Knee pain Qualifiers: Chronicity: acute Laterality: left Qualified Code(s): M25.562 - Pain in left knee - Discharge Information *PRESCRIPTION DRUG MONITORING PROGRAM REVIEWED*: No *COPY OF PRESCRIPTION DRUG MONITORING REPORT IN PATIENT LUCY: No Prescriptions: Naproxen [Naprosyn] 500 mg PO Q12HR 5 Days #10 tab Instructions: Acute Knee Pain, Adult Referrals: Moni Bartholomew PA-C [Primary Care Provider] - Vishal Senior MD [Physician] - Forms: ED Department Discharge Additional Instructions: You were seen in the emergency department today for left knee pain with no known injury. X-rays are completed and did not show any abnormalities other than the joint space being narrowed. An Jonathan wrap has been applied. Recommend intermittent ice and heat to the area. In the ER, you received an injection of Toradol which is an NSAID. [facility]. Do not take a dose of this until this evening. Do not take any other NSAIDs such as meloxicam while you are taking this medication. If you are still having significant discomfort on the Wednesday after Aw[place], recommend follow-up with Dr. Senior. Return to ER as needed. Sepsis Event Note (ED) - Evaluation Sepsis Screening Result: No Definite Risk - Focused Exam Vital Signs: Vital Signs Temp Pulse Resp BP Pulse Ox 11/03/20 12:01 98 F 105 H 16 149/109 H 97 - My Orders Last 24 Hours: My Active Orders 11/03/20 12:07 Knee Min 4V Lt [CR] Stat - Assessment/Plan Last 24 Hours: My Active Orders 11/03/20 12:07 Knee Min 4V Lt [CR] Stat
--- NOTE | 2020-11-04 12:24 | CR ---
Left knee: 4 views of the left knee were obtained. Comparison: No prior knee study is available. No joint effusion is appreciated. Medial and lateral joint compartments are maintained in height. No discrete fracture or other bony abnormality is appreciated. Impression: 1. Nothing acute is seen on left knee study. Diagnostic code #1
== END 2020-11-03 13:30 | disposition home or self-care (01) ==
LOC: JD.ED 11:37
DX: M25.562 Pain in left knee (principal); E78.00 Pure hypercholesterolemia, unspecified; I10 Essential (primary) hypertension; K21.9 Gastro-esophageal reflux disease without esophagitis; M10.9 Gout, unspecified; F41.9 Anxiety disorder, unspecified; F32.9 Major depressive disorder, single episode, unspecified; E11.9 Type 2 diabetes mellitus without complications; E66.9 Obesity, unspecified; Z68.41 Body mass index [BMI] 40.0-44.9, adult; Z88.1 Allergy status to other antibiotic agents; Z79.899 Other long term (current) drug therapy
CPT/HCPCS: 73564; 96372; 99283; J1885

== ENCOUNTER 2020-11-04 20:20 | Emergency (ER) | payer BC ==
[2020-11-04 21:07] VITALS: BP 160/98; PULSE 118
--- NOTE | 2020-11-04 21:17 | EDM.PDOC ---
ED HPI GENERAL MEDICAL PROBLEM - General Chief Complaint: Lower Extremity Injury/Pain Stated Complaint: KNEE PAIN L Time Seen by Provider: 11/04/20 21:16 - History of Present Illness INITIAL COMMENTS - FREE TEXT/NARRATIVE: 84-year-old male presents the emergency room with continued left knee pain. Patient was seen here yesterday with left knee pain was given naproxen unfortunately was not able to get this filled. His pain is actually getting quite a bit worse today compared to yesterday. Patient has a history of gout but is never had in his knee in the past. Patient has used colchicine in the past and is on medications that are tough on his kidneys. Patient is also treated with Metformin. History of trauma to the knee recently. She has been gradually getting worse no triggering events. Patient has a history of gout. But only in his feet. And has not had any fevers or chills no other systemic signs of illness. Left Knee Pain Score (Numeric/FACES): 9 - Related Data Allergies Allergy/AdvReac Type Severity Reaction Status Date / Time meloxicam [From Mobic] AdvReac Severe "kidney Verified 11/04/20 20:54 concerns" Home Meds: Home Meds metFORMIN [Glucophage] 1,000 mg PO BIDMEALS 02/03/16 [History] Metoprolol Succinate [Toprol XL] 50 mg PO DAILY 02/16/16 [History] Furosemide [Lasix] 40 mg PO DAILY 03/24/16 [History] DULoxetine [Cymbalta] 30 mg PO DAILY 02/25/19 [History] ALPRAZolam [Xanax] 0.5 - 1 mg PO DAILY PRN 10/18/20 [History] Celecoxib 200 mg PO BID 10/18/20 [History] DULoxetine [Cymbalta] 60 mg PO DAILY 10/18/20 [History] Ibuprofen 200 - 600 mg PO Q6HR PRN 10/18/20 [History] Magnesium 250 mg PO DAILY 10/18/20 [History] Multivitamin 1 tab PO DAILY 10/18/20 [History] Pantoprazole Sodium [Protonix] 40 mg PO DAILY 10/18/20 [History] Potassium Gluconate [Potassium] 99 mg PO DAILY 10/18/20 [History] Rosuvastatin Calcium [Crestor] 40 mg PO DAILY 10/18/20 [History] busPIRone [Buspar] 15 mg PO DAILY 10/18/20 [History] lisinopriL [Lisinopril] 40 mg PO DAILY 10/18/20 [History] Acetaminophen [Tylenol] 650 mg PO Q4H PRN #0 10/21/20 [Rx] Acetaminophen/HYDROcodone [Orange 325-5 MG] 1 - 2 tab PO Q6H PRN #30 tablet 10/21/20 [Rx] Cyclobenzaprine [Flexeril] 10 mg PO BID PRN #10 tab 10/21/20 [Rx] Past Medical History HEENT History: Reports: Allergic Rhinitis, Impaired Vision Other HEENT History: wears contacts/glasses Cardiovascular History: Reports: High Cholesterol, Hypertension Other Cardiovascular History: chest pain, angiogram (negative) Respiratory History: Reports: Sleep Apnea Gastrointestinal History: Reports: Chronic Constipation, GERD, Other (See Below) Other Gastrointestinal History: bloating, acid reflux, anal fistula, transaminitis 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 History: Reports: Renal Calculus 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 Musculoskeletal History: Reports: Gout, Other (See Below) Other Musculoskeletal History: ac joint bone spurs, foot pain, elbow pain, bilateral hip pain, bilateral shoulder pain, rotator cuff impingement, right lateral epicondylitis, ankle pain and swelling, foot injury, metarsal bone fracture Neurological History: Reports: None Psychiatric History: Reports: Anxiety, Depression, Other (See Below) Other Psychiatric History: insomnia, fatigue, panic attacks Endocrine/Metabolic History: Reports: Diabetes, Type II, Obesity/BMI 30+, Vitamin D Deficiency, Other (See Below) Other Endocrine/Metabolic History: metabolic syndrome Hematologic History: Reports: None Immunologic History: Reports: None Oncologic (Cancer) History: Reports: None Dermatologic History: Reports: None - Infectious Disease History Infectious Disease History: Reports: Influenza - Past Surgical History Head Surgeries/Procedures: Reports: None HEENT Surgical History: Reports: Myringotomy w Tube(s), Tonsillectomy Cardiovascular Surgical History: Reports: None Respiratory Surgical History: Reports: None GI Surgical History: Reports: None Male Surgical History: Reports: None Endocrine Surgical History: Reports: None Neurological Surgical History: Reports: None Musculoskeletal Surgical History: Reports: Other (See Below) Other Musculoskeletal Surgeries/Procedures:: right arm surgery, left shoulder surgery - torn bicep and born spur removed Oncologic Surgical History: Reports: None Social & Family History - Family History Family Medical History: No Pertinent Family History - Tobacco Use Tobacco Use Status *Q: Never Tobacco User - Caffeine Use Caffeine Use: Reports: Coffee, Soda - Recreational Drug Use Recreational Drug Use: No - Living Situation & Occupation Living situation: Reports: , with Spouse, with Family (6 kids) 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) Review of Systems - Review of Systems Review Of Systems: See Below Constitutional: Reports: No Symptoms Respiratory: Reports: No Symptoms Cardiovascular: Reports: No Symptoms GI/Abdominal: Reports: No Symptoms ED EXAM, GENERAL - Physical Exam Exam: See Below Exam Limited By: No Limitations General Appearance: Alert, No Apparent Distress Respiratory/Chest: No Respiratory Distress, Lungs Clear Cardiovascular: Regular Rate, Rhythm, No Edema, No Murmur Extremities: Other (Left knee shows no redness minimal warmth over the anterior portion of the knee where this is more tender and goes down to the lateral joint lines but does not move posterior beyond that. Palpation around the kneecap is tender.) Course - Vital Signs Last Recorded V/S: Last Vital Signs Temp 36.8 C 11/04/20 21:06 Pulse 118 H 11/04/20 21:06 Resp 20 11/04/20 21:06 BP 160/98 H 11/04/20 21:06 Pulse Ox 96 11/04/20 21:06 - Orders/Labs/Meds Meds: Medications Discontinued Medications Generic Name Dose Route Start Last Admin Trade Name Chayito PRN Reason Stop Dose Admin Prednisone 60 mg 11/04/20 21:33 Prednisone PO 11/04/20 21:34 ONETIME ONE - Re-Assessments/Exams Free Text/Narrative Re-Assessment/Exam: 11/04/20 21:42 Patient was started on Naprosyn yesterday had like him to hold this. I will give him 60 mg of oral prednisone and have informed him in no uncertain terms keep a very close eye on his blood sugars. And then we will put him on a prednisone 40 mg a day starting tomorrow morning for 5 days. 11/04/20 21:46 Apparently the patient left the department before getting 60 mg of prednisone and his prescription for 40 mg for the next 5 days interestingly the patient did not get his Naprosyn filled that he was given yes yesterday. Departure - Departure Time of Disposition: 21:43 Disposition: Eloped 07 Clinical Impression: Left knee pain, History of gout - Discharge Information Referrals: Vishal Senior MD [Primary Care Provider] - Forms: ED Department Discharge Additional Instructions: Turn to the emergency room with any questions problems or worsening symptoms. Do not use the Naprosyn. You have been started on prednisone 60 mg tonight I want to take 40 mg daily for the next 5 days starting first thing tomorrow morning Sepsis Event Note (ED) - Evaluation Sepsis Screening Result: No Definite Risk - Focused Exam Vital Signs: Vital Signs Temp Pulse Resp BP Pulse Ox 11/04/20 21:06 36.8 C 118 H 20 160/98 H 96
[2020-11-04] MEDS ORDERED: predniSONE 20 MG Tab PO ONE (21:33)
== END 2020-11-04 21:35 | disposition left against medical advice (07) ==
LOC: JD.ED 20:20 → SUPCPDRO 20:20 → JD.ED 21:35
DX: M25.562 Pain in left knee (principal); M10.9 Gout, unspecified; E78.00 Pure hypercholesterolemia, unspecified; I10 Essential (primary) hypertension; K21.9 Gastro-esophageal reflux disease without esophagitis; F41.9 Anxiety disorder, unspecified; F32.9 Major depressive disorder, single episode, unspecified; E11.9 Type 2 diabetes mellitus without complications; E66.9 Obesity, unspecified; Z68.42 Body mass index [BMI] 45.0-49.9, adult; Z79.899 Other long term (current) drug therapy; Z88.6 Allergy status to analgesic agent
CPT/HCPCS: 99283

== ENCOUNTER 2021-02-17 19:05 | Emergency (ER) | payer BC ==
[2021-02-17] MEDS ORDERED: HYDROmorphone 1 MG/ML Syringe IM ONE (19:21)
--- NOTE | 2021-02-17 19:27 | EDM.PDOC ---
ED HPI GENERAL MEDICAL PROBLEM - General Chief Complaint: Lower Extremity Injury/Pain Stated Complaint: foot injury Time Seen by Provider: 02/17/21 19:15 Source of Information: Reports: Patient, RN Notes Reviewed History Limitations: Reports: No Limitations - History of Present Illness INITIAL COMMENTS - FREE TEXT/NARRATIVE: Patient is a 45-year-old male who presents to the ED for the evaluation of his left foot pain. Patient notes that quite a few years ago, he ended up breaking some bones in his left foot. He notes that 2 years ago he stepped wrong on his job, and ended up reinjuring the area on his foot. Patient notes that the pain is somewhat similar to this, there is a deep gnawing/burning pain that was similar to the last time he had fractures. He did not take anything for medications at home. He does note some swelling to his lateral foot. He states that walking on it at all is increasingly painful. He has been feeling well otherwise and denies any sick symptoms like fevers or chills, cough or shortness of breath, nausea/vomiting/diarrhea. Left Feet Pain Score (Numeric/FACES): 8 - Related Data Allergies Allergy/AdvReac Type Severity Reaction Status Date / Time meloxicam [From Mobic] AdvReac Severe "kidney Verified 02/17/21 19:15 concerns" Home Meds: Home Meds metFORMIN [Glucophage] 1,000 mg PO BIDMEALS 02/03/16 [History] Metoprolol Succinate [Toprol XL] 50 mg PO DAILY 02/16/16 [History] Furosemide [Lasix] 40 mg PO DAILY 03/24/16 [History] DULoxetine [Cymbalta] 30 mg PO DAILY 02/25/19 [History] ALPRAZolam [Xanax] 0.5 - 1 mg PO DAILY PRN 10/18/20 [History] Celecoxib 200 mg PO BID 10/18/20 [History] DULoxetine [Cymbalta] 60 mg PO DAILY 10/18/20 [History] Ibuprofen 200 - 600 mg PO Q6HR PRN 10/18/20 [History] Magnesium 250 mg PO DAILY 10/18/20 [History] Multivitamin 1 tab PO DAILY 10/18/20 [History] Pantoprazole Sodium [Protonix] 40 mg PO DAILY 10/18/20 [History] Potassium Gluconate [Potassium] 99 mg PO DAILY 10/18/20 [History] Rosuvastatin Calcium [Crestor] 40 mg PO DAILY 10/18/20 [History] busPIRone [Buspar] 15 mg PO DAILY 10/18/20 [History] lisinopriL [Lisinopril] 40 mg PO DAILY 10/18/20 [History] Acetaminophen [Tylenol] 650 mg PO Q4H PRN #0 10/21/20 [Rx] Hydrocodone/Acetaminophen [Hydrocodon-Acetaminophen 5-325] 1 tab PO Q6H PRN #20 tablet 02/17/21 [Rx] Past Medical History HEENT History: Reports: Allergic Rhinitis, Impaired Vision Other HEENT History: wears contacts/glasses Cardiovascular History: Reports: High Cholesterol, Hypertension Other Cardiovascular History: chest pain, angiogram (negative) Respiratory History: Reports: Sleep Apnea Gastrointestinal History: Reports: Chronic Constipation, GERD, Other (See Below) Other Gastrointestinal History: bloating, acid reflux, anal fistula, transaminitis 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 History: Reports: Renal Calculus 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 Musculoskeletal History: Reports: Gout, Other (See Below) Other Musculoskeletal History: ac joint bone spurs, foot pain, elbow pain, bi lateral hip pain, bilateral shoulder pain, rotator cuff impingement, right lateral epicondylitis, ankle pain and swelling, foot injury, metarsal bone fracture Neurological History: Reports: None Psychiatric History: Reports: Anxiety, Depression, Other (See Below) Other Psychiatric History: insomnia, fatigue, panic attacks Endocrine/Metabolic History: Reports: Diabetes, Type II, Obesity/BMI 30+, Vitamin D Deficiency, Other (See Below) Other Endocrine/Metabolic History: metabolic syndrome Hematologic History: Reports: None Immunologic History: Reports: None Oncologic (Cancer) History: Reports: None Dermatologic History: Reports: None - Infectious Disease History Infectious Disease History: Reports: Influenza - Past Surgical History HEENT Surgical History: Reports: Myringotomy w Tube(s), Tonsillectomy Musculoskeletal Surgical History: Reports: Shoulder Surgery, Other (See Below) Other Musculoskeletal Surgeries/Procedures:: right arm surgery, left shoulder surgery - torn bicep and born spur removed Social & Family History - Family History Family Medical History: No Pertinent Family History - Tobacco Use Tobacco Use Status *Q: Never Tobacco User - Caffeine Use Caffeine Use: Reports: Coffee, Energy Drinks - Recreational Drug Use Recreational Drug Use: No - Living Situation & Occupation Living situation: Reports: , with Spouse, with Family (6 kids) 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 ED EXAM, GENERAL - Physical Exam Exam: See Below Exam Limited By: No Limitations General Appearance: Alert, WD/WN, No Apparent Distress Eye Exam: Bilateral Eye: EOMI, Normal Inspection, PERRL Respiratory/Chest: No Respiratory Distress, Lungs Clear, Normal Breath Sounds, No Accessory Muscle Use, Chest Non-Tender Cardiovascular: Normal Peripheral Pulses, Regular Rate, Rhythm, No Edema Peripheral Pulses: 2+: Radial (L), Radial (R) Extremities: Normal Inspection, Normal Capillary Refill, Other (mild amount of swelling and tenderness to the patient's lateral L midfoot.) Neurological: Alert, Oriented, Normal Cognition, No Motor/Sensory Deficits Psychiatric: Normal Affect, Normal Mood Skin Exam: Warm, Dry, Intact, Normal Color, No Rash Course - Vital Signs Last Recorded V/S: Last Vital Signs Temp 97.6 F 02/17/21 19:11 Pulse 79 02/17/21 19:11 Resp 16 02/17/21 19:11 BP 141/83 H 02/17/21 19:11 Pulse Ox 100 02/17/21 19:11 - Orders/Labs/Meds Orders: Active Orders 24 hr Category Date Time Status Foot Comp Min 3V Lt [CR] Stat Exams 02/17/21 19:16 Taken DME for Discharge [COMM] Routine Oth 02/17/21 20:18 Ordered Meds: Medications Discontinued Medications Generic Name Dose Route Start Last Admin Trade Name Chayito PRN Reason Stop Dose Admin Hydromorphone HCl 1 mg 02/17/21 19:21 02/17/21 19:39 Hydromorphone 1 Mg/Ml Syringe IM 02/17/21 19:22 1 mg ONETIME ONE Administration - Re-Assessments/Exams Free Text/Narrative Re-Assessment/Exam: 02/17/21 19:27 Patient presents to the ED for his left foot pain, we will go ahead and get x- rays, and give him some pain medication for ongoing management. 02/17/21 20:09 X-rays have been done, there is an area concerning for subacute fracture of the proximal metaphysis of the fourth metatarsal, bony remodeling of the adjacent proximal fifth metatarsal which may be sequelae of instability of the fracture, mild soft tissue swelling dorsal to the metatarsals, again the patient has fractured his foot in this area, but it does maybe appear as if he has refractured the area. I have been in contact with NIKO Mathur in [place] for Ortho second opinion/referral for walking boot with nonweightbearing versus weightbearing, and have him follow-up with Ortho as appropriate. 02/17/21 20:12 Dr. Mukherjee does recommend to place the patient in a walking boot for stability of the fracture, he can weight-bear as tolerated we will get him some medication for pain management in the meantime, he should follow-up with orthopedics, sometime within this next week for ongoing management. Departure - Departure Time of Disposition: 20:16 Disposition: Home, Self-Care 01 Condition: Good Clinical Impression: Fracture of 4th metatarsal Qualifiers: Encounter type: initial encounter Fracture type: closed Fracture alignment: nondisplaced Laterality: left Qualified Code(s): S92.345A - Nondisplaced fracture of fourth metatarsal bone, left foot, initial encounter for closed fracture - Discharge Information *PRESCRIPTION DRUG MONITORING PROGRAM REVIEWED*: Yes *COPY OF PRESCRIPTION DRUG MONITORING REPORT IN PATIENT LUCY: No Prescriptions: Hydrocodone/Acetaminophen [Hydrocodon-Acetaminophen 5-325] 1 tab PO Q6H PRN #20 tablet PRN Reason: Pain Instructions: Metatarsal Fracture Referrals: Moni Bartholomew PA-C [Primary Care Provider] - Forms: ED Department Discharge Additional Instructions: You have been evaluated in the ED for your left foot swelling/pain. Your x-ray demonstrated an area concerning for an acute on chronic fracture of your proximal fourth metatarsal. You have been placed into a walking boot for stability of the fracture, you may weight-bear as tolerated, crutches have also been provided to you in case you cannot bear weight. Please use ice as tolerated to the affected area. You may elevate the affected area to provide further relief from swelling. You may take Tylenol 500 mg or ibuprofen 600mg q6 hrs for pain relief. Please do so until you have a tolerable level of pain with activity. Do not exceed 4000mg Tylenol, Do not exceed 3200mg ibuprofen in a 24 hour time period. You were given a prescription for a strong pain medication, hydrocodone/acetaminophen 5/325, please take 1 tab every 6 hours as needed for pain not relieved by Tylenol or ibuprofen alone. Please note this does contain Tylenol in it, so do not take more than 4000 mg in a 24-hour time span. These medications can be addictive, so please take as few as possible to achieve adequate pain control. These meds can also be quite constipating, recommend that you increase your oral fluid intake and take a stool softener like MiraLAX while taking these medications. This medication was electronically sent to the [facility] located in the [facility] store. Please call Ortho for follow-up and further evaluation Dr. Senior is our orthopedic surgeon, his office number is [phone]. Please call and set up an appointment as soon as possible for further management. Please return to ED if your symptoms should change or worsen. Sepsis Event Note (ED) - Evaluation Sepsis Screening Result: No Definite Risk - Focused Exam Vital Signs: Vital Signs Temp Pulse Resp BP Pulse Ox 02/17/21 19:11 97.6 F 79 16 141/83 H 100 - My Orders Last 24 Hours: My Active Orders 02/17/21 19:16 Foot Comp Min 3V Lt [CR] Stat 02/17/21 20:18 DME for Discharge [COMM] Routine - Assessment/Plan Last 24 Hours: My Active Orders 02/17/21 19:16 Foot Comp Min 3V Lt [CR] Stat 02/17/21 20:18 DME for Discharge [COMM] Routine
[2021-02-17 19:36] VITALS: BP 141/83; PULSE 79
--- NOTE | 2021-02-18 08:58 | CR ---
Left foot: 4 views of the left foot were obtained. Comparison: No previous study is available. Joint space narrowing is noted within the first MTP joint. Previous fracture is noted within the proximal left fourth metatarsal. This shows bridging callus but fracture line is still visible. There is some remodeling due to the fracture deformity within the fifth metatarsal shaft. Small plantar spur is seen. No additional fracture or other bony abnormality is appreciated. Impression: 1. Fracture with bridging callus within the proximal fourth metacarpal. There is remodeling of a portion of the fifth metacarpal shaft due to deformity from the healing fracture. 2. Mild degenerative change and small plantar spur. 3. No acute abnormality is otherwise seen. Diagnostic code #2 I agree with preliminary report from [facility], finalized on 02/17/21, 8:57 PM CDT
== END 2021-02-17 20:45 | disposition home or self-care (01) ==
LOC: JD.ED 19:05
DX: S92.345A Nondisplaced fracture of fourth metatarsal bone, left foot, initial encounter for closed fracture (principal); Z88.8 Allergy status to other drugs, medicaments and biological substances; E78.00 Pure hypercholesterolemia, unspecified; K21.9 Gastro-esophageal reflux disease without esophagitis; M10.9 Gout, unspecified; E11.9 Type 2 diabetes mellitus without complications; E66.9 Obesity, unspecified; Z68.42 Body mass index [BMI] 45.0-49.9, adult; X50.9XXA Other and unspecified overexertion or strenuous movements or postures, initial encounter
CPT/HCPCS: 73630; 96372; 99283; J1170

== ENCOUNTER 2021-05-30 13:54 | Emergency (ER) | payer SELFPAY ==
[2021-05-30 14:27] VITALS: BP 150/100; PULSE 88
[2021-05-30] MEDS ORDERED: Sodium Chloride 0.9% 1,000 ML IV STA (15:15)
[2021-05-30] MEDS ORDERED: Ondansetron 4 MG/2 ML SDV IVPUSH ONE (15:15)
[2021-05-30] MEDS ORDERED: Sodium Chloride 0.9% 10 ML Syringe FLUSH PRN (15:15)
[2021-05-30] MEDS ORDERED: Pantoprazole 40 MG Vial IVPUSH ONE (15:17)
--- NOTE | 2021-05-30 17:50 | EDM.PDOC ---
ED HPI GENERAL MEDICAL PROBLEM - General Chief Complaint: General Stated Complaint: VOMITING BLOOD Time Seen by Provider: 05/30/21 14:14 Source of Information: Reports: Patient History Limitations: Reports: No Limitations - History of Present Illness INITIAL COMMENTS - FREE TEXT/NARRATIVE: The patient presents with nausea, vomiting, diarrhea and right ankle and great toe pain. This started a few weeks ago. He has a history of gout and he has a flare where his right ankle and great toe. He is taking celebrex. He also was driving home from [place] and felt severe sharp pain from his right hip to right leg. He has no history of DVT or PE. He also has been having nausea and vomiting and he has been vomiting up some blood lately. He does drink alcohol but not lately. He has some mile upper abdominal pain. He did take nexium at one time. He has no fever, chills, cough, chest pain or shortness of breath. Onset: Gradual Duration: Week(s): Location: Reports: Lower Extremity, Right (ankle and great toe) Quality: Reports: Sharp Severity: Severe Improves with: Reports: None Worsens with: Reports: None Associated Symptoms: Reports: Nausea/Vomiting. Denies: Chest Pain, Cough, Fever/Chills, Headaches, Shortness of Breath Right Ankle Pain Score (Numeric/FACES): 9 Right Toe-Hailux Pain Score (Numeric/FACES): 9 - Related Data Allergies Allergy/AdvReac Type Severity Reaction Status Date / Time meloxicam [From Mobic] AdvReac Severe "kidney Verified 02/17/21 19:15 concerns" Home Meds: Home Meds metFORMIN [Glucophage] 1,000 mg PO BIDMEALS 02/03/16 [History] Metoprolol Succinate [Toprol XL] 50 mg PO DAILY 02/16/16 [History] Furosemide [Lasix] 40 mg PO DAILY 03/24/16 [History] DULoxetine [Cymbalta] 30 mg PO DAILY 02/25/19 [History] ALPRAZolam [Xanax] 0.5 - 1 mg PO DAILY PRN 10/18/20 [History] Celecoxib 200 mg PO BID 10/18/20 [History] DULoxetine [Cymbalta] 60 mg PO DAILY 10/18/20 [History] Ibuprofen 200 - 600 mg PO Q6HR PRN 10/18/20 [History] Magnesium 250 mg PO DAILY 10/18/20 [History] Multivitamin 1 tab PO DAILY 10/18/20 [History] Potassium Gluconate [Potassium] 99 mg PO DAILY 10/18/20 [History] Rosuvastatin Calcium [Crestor] 40 mg PO DAILY 10/18/20 [History] busPIRone [Buspar] 15 mg PO DAILY 10/18/20 [History] lisinopriL [Lisinopril] 40 mg PO DAILY 10/18/20 [History] Acetaminophen [Tylenol] 650 mg PO Q4H PRN #0 10/21/20 [Rx] Colchicine 0.6 mg PO DAILY #20 capsule 05/30/21 [Rx] Esomeprazole Magnesium [Nexium] 40 mg PO DAILY 05/30/21 [History] Sucralfate [Carafate] 1 gm PO Q6HR #20 tab 05/30/21 [Rx] Past Medical History HEENT History: Reports: Allergic Rhinitis, Impaired Vision Other HEENT History: wears contacts/glasses Cardiovascular History: Reports: High Cholesterol, Hypertension Other Cardiovascular History: chest pain, angiogram (negative) Respiratory History: Reports: Sleep Apnea Gastrointestinal History: Reports: Chronic Constipation, GERD, Other (See Below) Other Gastrointestinal History: bloating, acid reflux, anal fistula, transaminitis 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 History: Reports: Renal Calculus 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 Musculoskeletal History: Reports: Gout, Other (See Below) Other Musculoskeletal History: ac joint bone spurs, foot pain, elbow pain, bilateral hip pain, bilateral shoulder pain, rotator cuff impingement, right lateral epicondylitis, ankle pain and swelling, foot injury, metarsal bone fracture Neurological History: Reports: None Psychiatric History: Reports: Anxiety, Depression, Other (See Below) Other Psychiatric History: insomnia, fatigue, panic attacks Endocrine/Metabolic History: Reports: Diabetes, Type II, Obesity/BMI 30+, Vitamin D Deficiency, Other (See Below) Other Endocrine/Metabolic History: metabolic syndrome Hematologic History: Reports: None Immunologic History: Reports: None Oncologic (Cancer) History: Reports: None Dermatologic History: Reports: None - Infectious Disease History Infectious Disease History: Reports: Influenza - Past Surgical History Head Surgeries/Procedures: Reports: None HEENT Surgical History: Reports: Myringotomy w Tube(s), Tonsillectomy Cardiovascular Surgical History: Reports: None Respiratory Surgical History: Reports: None GI Surgical History: Reports: None Male Surgical History: Reports: None Endocrine Surgical History: Reports: None Neurological Surgical History: Reports: None Musculoskeletal Surgical History: Reports: Shoulder Surgery, Other (See Below) Other Musculoskeletal Surgeries/Procedures:: right arm surgery, left shoulder surgery - torn bicep and born spur removed Oncologic Surgical History: Reports: None Social & Family History - Family History Family Medical History: No Pertinent Family History - Tobacco Use Tobacco Use Status *Q: Never Tobacco User - Caffeine Use Caffeine Use: Reports: Coffee, Energy Drinks, Soda, Tea - Recreational Drug Use Recreational Drug Use: No - Living Situation & Occupation Living situation: Reports: , with Spouse, with Family (6 kids) 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) ED ROS GENERAL - Review of Systems Review Of Systems: See Below Constitutional: Reports: No Symptoms HEENT: Reports: No Symptoms Respiratory: Reports: No Symptoms Cardiovascular: Reports: No Symptoms Endocrine: Reports: No Symptoms GI/Abdominal: Reports: Abdominal Pain, Diarrhea, Nausea, Vomiting : Reports: No Symptoms Musculoskeletal: Reports: Other (Right ankle and right great toe pain and swelling) ED EXAM, GENERAL - Physical Exam Exam: See Below Exam Limited By: No Limitations General Appearance: Alert, No Apparent Distress Ears: Normal External Exam Nose: Normal Inspection Head: Atraumatic, Normocephalic Neck: Normal Inspection Respiratory/Chest: No Respiratory Distress, Lungs Clear, Normal Breath Sounds Cardiovascular: Regular Rate, Rhythm, No Edema, No Murmur GI/Abdominal: Soft, Non-Tender, No Organomegaly, No Mass Extremities: Normal Inspection Neurological: Alert, Oriented, No Motor/Sensory Deficits Course - Vital Signs Last Recorded V/S: Last Vital Signs Temp 98.3 F 05/30/21 14:24 Pulse 88 05/30/21 14:24 Resp 20 05/30/21 14:24 BP 150/100 H 05/30/21 14:24 Pulse Ox 96 05/30/21 14:24 - Orders/Labs/Meds Orders: Active Orders 24 hr Category Date Time Status Peripheral IV Care [RC] . DIRECTED Care 05/30/21 15:16 Active Sodium Chloride 0.9% [Saline Flush] Med 05/30/21 15:15 Active 10 ml FLUSH ASDIRECTED PRN ED Antiemetic Medication Reflex [OM.PC] Stat Ot 05/30/21 15:16 Ordered Peripheral IV Insertion Adult [OM.PC] Stat Ot 05/30/21 15:15 Ordered Medication Orders Sodium Chloride (Sodium Chloride 0.9% 10 Ml Syringe) 10 ml FLUSH ASDIRECTED PRN PRN Reason: Keep Vein Open Labs: Laboratory Tests 05/30/21 05/30/21 05/30/21 Range/Units 15:15 17:05 17:05 WBC 8.26 (4.23-9.07) K/mm3 RBC 5.01 (4.63-6.08) M/mm3 Hgb 14.2 (13.7-17.5) gm/dl Hct 42.1 (40.1-51.0) % MCV 84.0 (79.0-92.2) fl MCH 28.3 (25.7-32.2) pg MCHC 33.7 (32.2-35.5) g/dl RDW Std Deviation 42.6 (35.1-43.9) fL Plt Count 303 (163-337) K/mm3 MPV 9.7 (9.4-12.3) fl Neut % (Auto) 58.7 (34.0-67.9) % Lymph % (Auto) 32.2 (21.8-53.1) % [place] % (Auto) 6.9 (5.3-12.2) % Eos % (Auto) 1.6 (0.8-7.0) Baso % (Auto) 0.5 (0.1-1.2) % Neut # (Auto) 4.85 (1.78-5.38) K/mm3 Lymph # (Auto) 2.66 (1.32-3.57) K/mm3 [place] # (Auto) 0.57 (0.30-0.82) K/mm3 Eos # (Auto) 0.13 (0.04-0.54) K/mm3 Baso # (Auto) 0.04 (0.01-0.08) K/mm3 PT 10.5 (9.7-12.0) SECONDS INR 0.98 APTT 28.5 (21.7-31.4) SECONDS D-Dimer, Quantitative 0.46 (0.19-0.50) mg/L Sodium 144 (136-145) mEq/L Potassium 4.0 (3.5-5.1) mEq/L Chloride 104 (98-107) mEq/L Carbon Dioxide 27 (21-32) mEq/L Anion Gap 17.0 H (5-15) BUN 13 (7-18) mg/dL Creatinine 1.1 (0.7-1.3) mg/dL Est Cr Clr Drug Dosing 86.64 mL/min Estimated GFR (MDRD) > 60 (>60) mL/min BUN/Creatinine Ratio 11.8 L (14-18) Glucose 97 (70-99) mg/dL Uric Acid 11.1 H (3.5-7.2) mg/dL Calcium 9.3 (8.5-10.1) mg/dL Total Bilirubin 0.4 (0.2-1.0) mg/dL AST 35 (15-37) U/L ALT 73 H (16-63) U/L Alkaline Phosphatase 106 (46-116) U/L Total Protein 7.2 (6.4-8.2) g/dl Albumin 4.1 (3.4-5.0) g/dl Globulin 3.1 gm/dL Albumin/Globulin Ratio 1.3 (1-2) Lipase 196 (73-393) U/L Meds: Medications Generic Name Dose Route Start Last Admin Trade Name Freq PRN Reason Stop Dose Admin Sodium Chloride 10 ml 05/30/21 15:15 Sodium Chloride 0.9% 10 Ml Syringe FLUSH ASDIRECTED PRN Keep Vein Open Discontinued Medications Generic Name Dose Route Start Last Admin Trade Name Freq PRN Reason Stop Dose Admin Sodium Chloride 1,000 mls @ 1,000 mls/hr 05/30/21 15:15 05/30/21 16:10 Normal Saline IV 05/30/21 16:14 1,000 mls/hr .BOLUS STA Administration Ondansetron HCl 4 mg 05/30/21 15:15 05/30/21 16:10 Ondansetron 4 Mg/2 Ml Sdv IVPUSH 05/30/21 15:16 4 mg ONETIME ONE Administration Pantoprazole Sodium 40 mg 05/30/21 15:17 05/30/21 16:10 Pantoprazole 40 Mg Vial IVPUSH 05/30/21 15:18 40 mg ONETIME ONE Administration - Re-Assessments/Exams Free Text/Narrative Re-Assessment/Exam: 05/30/21 17:50 I ordered an IV NS 1L bolus, zofran 4mg IV, protonix 40mg IV, and albs. His CBC looks good. His anion gap was slightly elevated at 17. His ALT was elevated at 73. His lipase is normal. 05/30/21 17:57 I am going to have him stop the cerebrex and put him on colchicine. Departure - Departure Time of Disposition: 18:10 Disposition: Home, Self-Care 01 Condition: Good Clinical Impression: Acute gouty arthritis Gastritis Qualifiers: Gastritis type: unspecified gastritis Chronicity: acute Gastritis bleeding: with bleeding Qualified Code(s): K29.01 - Acute gastritis with bleeding - Discharge Information *PRESCRIPTION DRUG MONITORING PROGRAM REVIEWED*: Not Applicable *COPY OF PRESCRIPTION DRUG MONITORING REPORT IN PATIENT LUCY: Not Applicable Prescriptions: Sucralfate [Carafate] 1 gm PO Q6HR #20 tab Colchicine 0.6 mg PO DAILY #20 capsule Referrals: Mnoi Bartholomew PA-C [Primary Care Provider] - 1 Week Malcolm Vargas MD [Physician] - 1 Week Forms: ED Department Discharge Additional Instructions: Stop taking the celebrex until your stomach feels better. Mauricio colchicine 1.2mg or 2 tablets now and then 0.6mg or 1 tablet an hour later, then take 0.6mg daily until the flair is gone. Take the nexium as prescribed. Take the carafate 4 times per day. Avoid any spicy food. Follow up with Dr Vargas within a week. Please return if you are worse. Sepsis Event Note (ED) - Evaluation Sepsis Screening Result: No Definite Risk - Focused Exam Vital Signs: Vital Signs Temp Pulse Resp BP Pulse Ox 05/30/21 14:24 98.3 F 88 20 150/100 H 96 - My Orders Last 24 Hours: My Active Orders 05/30/21 15:15 Sodium Chloride 0.9% [Saline Flush] 10 ml FLUSH ASDIRECTED PRN Peripheral IV Insertion Adult [OM.PC] Stat 05/30/21 15:16 Peripheral IV Care [RC] . DIRECTED ED Antiemetic Medication Reflex [OM.PC] Stat - Assessment/Plan Last 24 Hours: My Active Orders 05/30/21 15:15 Sodium Chloride 0.9% [Saline Flush] 10 ml FLUSH ASDIRECTED PRN Peripheral IV Insertion Adult [OM.PC] Stat 05/30/21 15:16 Peripheral IV Care [RC] . DIRECTED ED Antiemetic Medication Reflex [OM.PC] Stat
== END 2021-05-30 18:44 | disposition home or self-care (01) ==
LOC: JD.ED 13:54
DX: K29.01 Acute gastritis with bleeding (principal); M10.9 Gout, unspecified; E11.9 Type 2 diabetes mellitus without complications; E66.9 Obesity, unspecified; E78.00 Pure hypercholesterolemia, unspecified; I10 Essential (primary) hypertension; Z68.42 Body mass index [BMI] 45.0-49.9, adult; Z88.8 Allergy status to other drugs, medicaments and biological substances; Z79.899 Other long term (current) drug therapy
CPT/HCPCS: 36415; 80053; 83690; 84550; 85025; 85379; 85610; 85730; 96374; 96375; 99284; C9113; J2405; J7030

== ENCOUNTER 2021-06-10 08:39 | Day surgery (SDC) | payer SELFPAY ==
[~2021-06-10 08:39] MED LIST changes: +Lidocaine 1% 4 ML ONE; +Propofol 200 MG/20 ML SDV ONE; +fentaNYL 100 MCG/2 ML SDV ONE
[2021-06-10] MEDS ORDERED: Albuterol 0.083% 2.5 MG/3 ML Neb Soln NEB PRN (08:51)
--- NOTE | 2021-06-10 09:16 | PCM.PREANE ---
Preanesthetic Assessment - Procedure Proposed Procedure: EGD - Anesthesia/Transfusion/Family Hx Anesthesia History: Prior Anesthesia Without Reaction Family History of Anesthesia Reaction: No Transfusion History: No Prior Transfusion(s) (Previous glidescope intubation) Intubation History: History of Difficulty Intubation - Review of Systems General: No Symptoms Pulmonary: No Symptoms Cardiovascular: No Symptoms Gastrointestinal: Hematochezia, Nausea Neurological: Other (Fatigue) Other: Reports: Diabetes, Depression, Anxiety - Physical Assessment NPO Status Date: 06/09/21 NPO Status Time: 23:00 Vital Signs: 152/115 then recheck of 145/93 HR 106 and recheck 97 20 RR 95% RA placed on 3 liters oxygen and now 98% 98.1 Height: 1.78 m Weight: 145 kg ASA Class: 3 Mental Status: Alert & Oriented x3 Airway Class: Mallampati = 3 Dentition: Reports: Normal Dentition, Missing Tooth/Teeth (3rd from back on right bottom), Caries Thyro-Mental Finger Breadths: 3 Mouth Opening Finger Breadths: 2 Lungs: Decreased Breath Sounds Cardiovascular: Regular Rate, Regular Rhythm, No Murmurs - Imaging/EKG Impressions: EKG 09/23/2020: NSR left axis deviation Stress test abnormal, EF 50% and small area of mild ischemia in anteroseptal region, nonreversible, suspicious for infarct, see report. Pt had angiogram: Normal cath - no interventions per patient, cardiology cleared patient for shoulder surgery in October 2020 following these tests. - Allergies Allergies/Adverse Reactions: Allergies Allergy/AdvReac Type Severity Reaction Status Date / Time meloxicam [From Mobic] AdvReac Severe "kidney Verified 06/09/21 16:25 concerns" - Blood Blood Available: No Product(s) Available: None - Anesthesia Plan Pre-Op Medication Ordered: None Beta Sammy: Metoprolol Med Last Dose Date: 06/10/21 Med Last Dose Time: 07:30 - Acknowledgements Anesthesia Type Planned: MAC Pt an Appropriate Candidate for the Planned Anesthesia: Yes Alternatives and Risks of Anesthesia Discussed w Pt/Guardian: Yes Pt/Guardian Understands and Agrees with Anesthesia Plan: Yes PreAnesthesia Questionnaire HEENT History: Reports: Allergic Rhinitis, Impaired Vision Other HEENT History: wears contacts/glasses Cardiovascular History: Reports: High Cholesterol, Hypertension Other Cardiovascular History: chest pain (none now), angiogram (negative) Respiratory History: Reports: Sleep Apnea, SOB Gastrointestinal History: Reports: Chronic Constipation, GERD, Other (See Below) Other Gastrointestinal History: bloating, acid reflux, anal fistula, transaminitis 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 History: Reports: 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 Calculus 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 Musculoskeletal History: Reports: Gout, Other (See Below) Other Musculoskeletal History: ac joint bone spurs, foot pain, elbow pain, bilateral hip pain, bilateral shoulder pain, rotator cuff impingement, right lateral epicondylitis, ankle pain and swelling, foot injury, metarsal bone fracture Neurological History: Reports: None Psychiatric History: Reports: Anxiety, Depression, Other (See Below) Other Psychiatric History: insomnia, fatigue, panic attacks Endocrine/Metabolic History: Reports: Diabetes, Type II, Obesity/BMI 30+, Vitamin D Deficiency, Other (See Below) Other Endocrine/Metabolic History: metabolic syndrome Hematologic History: Reports: None Immunologic History: Reports: None Oncologic (Cancer) History: Reports: None Dermatologic History: Reports: None - Infectious Disease History Infectious Disease History: Reports: None - Past Surgical History Head Surgeries/Procedures: Reports: None HEENT Surgical History: Reports: Myringotomy w Tube(s), Tonsillectomy Cardiovascular Surgical History: Reports: Other (See Below) Other Cardiovascular Surgeries/Procedures: Angiogram Respiratory Surgical History: Reports: None GI Surgical History: Reports: Colonoscopy Female Surgical History: Reports: None Male Surgical History: Reports: None Endocrine Surgical History: Reports: None Neurological Surgical History: Reports: None Musculoskeletal Surgical History: Reports: Shoulder Surgery, Other (See Below) Other Musculoskeletal Surgeries/Procedures:: right arm surgery, left shoulder surgery - torn bicep and born spur removed Oncologic Surgical History: Reports: None Dermatological Surgical History: Reports: None - SUBSTANCE USE Tobacco Use Status *Q: Never Tobacco User Tobacco Use Within Last Twelve Months: No Second Hand Smoke Exposure: No Days Per Week of Alcohol Use: 1 Number of Drinks Per Day: 4 Total Drinks Per Week: 4 Recreational Drug Use History: No - HOME MEDS Home Medications: Home Meds Metoprolol Succinate [Toprol XL] 50 mg PO DAILY 02/16/16 [History] Furosemide [Lasix] 40 mg PO DAILY 03/24/16 [History] DULoxetine [Cymbalta] 30 mg PO DAILY 02/25/19 [History] ALPRAZolam [Xanax] 0.5 - 1 mg PO DAILY PRN 10/18/20 [History] Celecoxib 200 mg PO BID 10/18/20 [History] DULoxetine [Cymbalta] 60 mg PO DAILY 10/18/20 [History] Magnesium 250 mg PO DAILY 10/18/20 [History] Multivitamin 1 tab PO DAILY 10/18/20 [History] Potassium Gluconate [Potassium] 99 mg PO DAILY 10/18/20 [History] Rosuvastatin Calcium [Crestor] 40 mg PO DAILY 10/18/20 [History] busPIRone [Buspar] 15 mg PO BID 10/18/20 [History] lisinopriL [Lisinopril] 40 mg PO DAILY 10/18/20 [History] Colchicine 0.6 mg PO DAILY #20 capsule 05/30/21 [Rx] Esomeprazole Magnesium [Nexium] 40 mg PO DAILY 05/30/21 [History] Phentermine HCl 37.5 mg PO DAILY 06/09/21 [History] traMADol Hcl/Acetaminophen [Ultracet Tablet] 1 tab PO BEDTIME PRN 06/09/21 [History] - CURRENT (IN HOUSE) MEDS Current Meds: Current Medications Albuterol (Albuterol 0.083% 2.5 Mg/3 Ml Neb Soln) 2.5 mg NEB ONETIME PRN PRN Reason: bronchodilation Stop: 06/10/21 12:00 Lactated Ringer's (Ringers, Lactated) 1,000 mls @ 125 mls/hr IV ASDIRECTED JAD Stop: 06/10/21 23:00 Lidocaine/Sodium Bicarbonate (Lidocaine 1%/Sod Bicarbonate In Ns 8.4% 1 Ml Syringe) 0.25 ml IDERM ONETIME PRN PRN Reason: Prior to IV Start Stop: 06/10/21 18:00 Sodium Chloride (Sodium Chloride 0.9% 10 Ml Syringe) 10 ml FLUSH ASDIRECTED PRN PRN Reason: Keep Vein Open Stop: 06/10/21 18:00 Discontinued Medications Fentanyl (Fentanyl 100 Mcg/2 Ml Sdv) Confirm Administered Dose 100 mcg .ROUTE .STK-MED ONE Stop: 06/10/21 07:08 Lidocaine HCl (Xylocaine-Mpf 1%) Confirm Administered Dose 4 mls @ as directed .ROUTE .STK-MED ONE Stop: 06/10/21 07:08 Propofol (Propofol 200 Mg/20 Ml Sdv) Confirm Administered Dose 200 mg .ROUTE .[facility] ONE Stop: 06/10/21 07:08
[2021-06-10] MEDS ORDERED: Propofol 200 MG/20 ML SDV ONE (09:49)
[2021-06-10] MEDS ORDERED: Ondansetron 4 MG/2 ML SDV IVPUSH PRN (09:54)
--- NOTE | 2021-06-10 10:05 | PCM.PRNOTE ---
- Free Text/Narrative Note: Date: 06/10/2021 Procedure: diagnostic esophagogastroduodenoscopy Indication: persistent nausea/vomiting, prior hematemesis Endoscopist: Malcolm Vargas MD Findings: retained food in stomach. Hiatus not visualized from within the stomach due to foreign material. Z-line appeared normal. Detailed Report: The patient was taken to the endoscopy suite and placed in left lateral decubitus position. Timeout was performed and monitored anesthesia care was initiated. A bite-block was placed. The endoscope was inserted and advanced all the way to the duodenum. On entry into the stomach, a fair amount of food material was encountered. The duodenum appeared grossly normal and mucosal biopsies were obtained with cold forceps. Biopsies were also obtained from antral mucosa. The visualized stomach appeared normal, but there was a fair amount of foreign material. On retroflexion, the hiatus was not well visualized due to pulling liquid with large particles of solid food. The scope was withdrawn into the distal esophagus. Gastric contents were noted to reflux into the esophagus. The Z-line appeared relatively normal. Biopsies were obtained of distal esophageal mucosa. Air was suctioned from the stomach prior to withdrawal of the scope. The remainder of the esophagus appeared normal. The patient tolerated the procedure well.
--- NOTE | 2021-06-10 10:17 | PCM48HPAN ---
Post Anesthesia Note - EVALUATION WITHIN 48HRS OF ANESTHETIC Vital Signs in Normal Range: Yes Patient Participated in Evaluation: Yes Respiratory Function Stable: Yes Airway Patent: Yes Cardiovascular Function Stable: Yes Hydration Status Stable: Yes Pain Control Satisfactory: Yes Nausea and Vomiting Control Satisfactory: Yes Mental Status Recovered: Yes Vital Signs: Last Vital Signs Temp 36.4 C 06/10/21 10:03 Pulse 102 H 06/10/21 10:03 Resp 10 L 06/10/21 10:03 BP 123/80 06/10/21 10:03 Pulse Ox 94 L 06/10/21 10:03
[2021-06-10 10:45] VITALS: BP 141/93; PULSE 100
== END 2021-06-10 10:42 | disposition home or self-care (01) ==
LOC: JD.SDS 08:39
PROVIDERS: ATTEND Surgery
DX: T18.2XXA Foreign body in stomach, initial encounter (principal); I10 Essential (primary) hypertension; E11.9 Type 2 diabetes mellitus without complications; E78.5 Hyperlipidemia, unspecified; G47.33 Obstructive sleep apnea (adult) (pediatric); M10.9 Gout, unspecified; E66.9 Obesity, unspecified; Z68.41 Body mass index [BMI] 40.0-44.9, adult; Z98.890 Other specified postprocedural states; Z79.899 Other long term (current) drug therapy; Z79.84 Long term (current) use of oral hypoglycemic drugs
CPT/HCPCS: 43239; 82947; 94640; J2704; J3010; J7120; 00731

== ENCOUNTER 2021-10-22 11:27 | Emergency (ER) | payer BC ==
[2021-10-22 11:51] VITALS: BP 125/87; PULSE 127
[2021-10-22] MEDS ORDERED: Sodium Chloride 0.9% 10 ML Syringe FLUSH PRN (12:06)
[2021-10-22] MEDS ORDERED: Ondansetron 4 MG/2 ML SDV IVPUSH ONE (12:06)
--- NOTE | 2021-10-22 12:35 | CR ---
Chest: Portable view of the chest was obtained. Comparison: Prior chest x-ray 01/28/16. Heart size and mediastinum are within normal limits. Lungs are clear with no acute parenchymal change. Bony structures show nothing acute. Impression: 1. Nothing acute is seen on portable chest x-ray. Diagnostic code #1
[2021-10-22 12:42] LABS: CORONAVIRUS COVID-19 NAA NEGATIVE (NEGATIVE)
--- NOTE | 2021-10-22 12:59 | EDM.PDOC ---
ED HPI GENERAL MEDICAL PROBLEM - General Chief Complaint: Abdominal Pain Stated Complaint: ABDOMINAL PAIN Time Seen by Provider: 10/22/21 11:34 Source of Information: Reports: Patient History Limitations: Reports: No Limitations - History of Present Illness INITIAL COMMENTS - FREE TEXT/NARRATIVE: 45-year-old male presents the emergency department today with complaints of nausea, diarrhea, generalized body aches, fatigue and shortness of breath. Patient states that symptoms started yesterday at around noon. He states that he started feeling slightly nauseated around noon yesterday. He states he started to have some fatigue and finished at work and got home around 6:00 last evening and states he went straight to bed. He states he then developed diarrhea and was up most of the night having 2-3 diarrhea stools every hour. States he was nauseated and did vomit twice. Has since had fever, chills, generalized weakness/fatigue and generalized body discomfort. He also has admitted to having some shortness of breath. States he has also had a significant decrease in his appetite and has only had a couple of cans of 7-Up today. Denies any history of smoking. States he does have a history of hypertension and high cholesterol for which she takes medications. His primary care provider is PRINCE Brock. - Related Data Allergies Allergy/AdvReac Type Severity Reaction Status Date / Time meloxicam [From Mobic] AdvReac Severe "kidney Verified 06/09/21 16:25 concerns" Home Meds: Home Meds Metoprolol Succinate [Toprol XL] 50 mg PO DAILY 02/16/16 [History] Furosemide [Lasix] 40 mg PO DAILY 03/24/16 [History] DULoxetine [Cymbalta] 30 mg PO DAILY 02/25/19 [History] ALPRAZolam [Xanax] 0.5 - 1 mg PO DAILY PRN 10/18/20 [History] Celecoxib 200 mg PO BID 10/18/20 [History] DULoxetine [Cymbalta] 60 mg PO DAILY 10/18/20 [History] Magnesium 250 mg PO DAILY 10/18/20 [History] Multivitamin 1 tab PO DAILY 10/18/20 [History] Potassium Gluconate [Potassium] 99 mg PO DAILY 10/18/20 [History] Rosuvastatin Calcium [Crestor] 40 mg PO DAILY 10/18/20 [History] busPIRone [Buspar] 15 mg PO BID 10/18/20 [History] lisinopriL [Lisinopril] 40 mg PO DAILY 10/18/20 [History] Colchicine 0.6 mg PO DAILY #20 capsule 05/30/21 [Rx] Esomeprazole Magnesium [Nexium] 40 mg PO DAILY 05/30/21 [History] Phentermine HCl 37.5 mg PO DAILY 06/09/21 [History] traMADol Hcl/Acetaminophen [Ultracet Tablet] 1 tab PO BEDTIME PRN 06/09/21 [History] Past Medical History HEENT History: Reports: Allergic Rhinitis, Impaired Vision Other HEENT History: wears contacts/glasses Cardiovascular History: Reports: High Cholesterol, Hypertension Other Cardiovascular History: chest pain (none now), angiogram (negative) Respiratory History: Reports: Sleep Apnea Other Respiratory History: wears c-pap Gastrointestinal History: Reports: Chronic Constipation, GERD, Other (See Below) Other Gastrointestinal History: bloating, acid reflux, anal fistula, transaminitis 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 History: Reports: Renal Calculus INSIDE WIREMAN History: Reports: None Musculoskeletal History: Reports: Gout, Other (See Below) Other Musculoskeletal History: ac joint bone spurs, foot pain, elbow pain, bilateral hip pain, bilateral shoulder pain, rotator cuff impingement, right lateral epicondylitis, ankle pain and swelling, foot injury, metarsal bone fracture Neurological History: Reports: None Psychiatric History: Reports: Anxiety, Depression, Other (See Below) Other Psychiatric History: insomnia, fatigue, panic attacks Endocrine/Metabolic History: Reports: Diabetes, Type II, Obesity/BMI 30+, Vitamin D Deficiency, Other (See Below) Other Endocrine/Metabolic History: metabolic syndrome Hematologic History: Reports: None Immunologic History: Reports: None Oncologic (Cancer) History: Reports: None Dermatologic History: Reports: None - Infectious Disease History Infectious Disease History: Reports: None, Influenza - Past Surgical History Head Surgeries/Procedures: Reports: None HEENT Surgical History: Reports: Myringotomy w Tube(s), Tonsillectomy Cardiovascular Surgical History: Reports: Other (See Below) Other Cardiovascular Surgeries/Procedures: Angiogram Respiratory Surgical History: Reports: None GI Surgical History: Reports: Colonoscopy Male Surgical History: Reports: None Endocrine Surgical History: Reports: None Neurological Surgical History: Reports: None Musculoskeletal Surgical History: Reports: Shoulder Surgery, Other (See Below) Other Musculoskeletal Surgeries/Procedures:: right arm surgery, left shoulder surgery - torn bicep and born spur removed Oncologic Surgical History: Reports: None Dermatological Surgical History: Reports: None Social & Family History - Family History Family Medical History: No Pertinent Family History - Tobacco Use Tobacco Use Status *Q: Never Tobacco User - Caffeine Use Caffeine Use: Reports: Coffee, Soda, Tea - Recreational Drug Use Recreational Drug Use: No - Living Situation & Occupation Living situation: Reports: , with Spouse, with Family (6 kids) 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 ED EXAM, GI/ABD - Physical Exam Exam: See Below Exam Limited By: No Limitations General Appearance: Alert, WD/WN, No Apparent Distress Ears: Normal External Exam, Hearing Grossly Normal Nose: Normal Inspection Throat/Mouth: Normal Inspection, Normal Lips, Normal Voice, No Airway Compromise Head: Atraumatic Neck: Normal Inspection, Supple Respiratory/Chest: No Respiratory Distress, Lungs Clear, Normal Breath Sounds, No Accessory Muscle Use, Chest Non-Tender Cardiovascular: Normal Peripheral Pulses, Regular Rate, Rhythm, No Edema, No Murmur GI/Abdominal Exam: Normal Bowel Sounds, Soft, Non-Tender, No Distention (Male) Exam: Deferred Rectal (Males) Exam: Deferred Back Exam: Normal Inspection Extremities: Normal Inspection, Normal Range of Motion, Non-Tender, No Pedal Edema, Normal Capillary Refill Neurological: Alert, Oriented, Normal Cognition Psychiatric: Normal Affect, Normal Mood Skin Exam: Warm, Dry, Intact, Normal Color, No Rash Lymphatic: No Adenopathy Course - Vital Signs Text/Narrative:: As stated above, patient presents with a 24-hour history of nausea, vomiting, diarrhea, generalized body aches and fatigue with associated fever and chills. Physical exam is essentially unremarkable. Patient is tachycardic at a rate of 127 at the time of triage, but is otherwise hemodynamically stable at the time of my exam. Will obtain a Covid swab on the patient. We will also have nursing staff place a saline lock and medicate him with Zofran. Obtain lab studies to include a CBC, CMP, magnesium, C-reactive protein, D-dimer. Last Recorded V/S: Last Vital Signs Temp 96.2 F L 10/22/21 11:46 Pulse 127 H 10/22/21 11:46 Resp 20 10/22/21 11:46 BP 125/87 10/22/21 11:46 Pulse Ox 94 L 10/22/21 11:46 - Orders/Labs/Meds Orders: Active Orders 24 hr Category Date Time Status Sodium Chloride 0.9% [Normal Saline] 100 ml Med 10/22/21 13:45 Active IV ASDIRECTED Sodium Chloride 0.9% [Saline Flush] Med 10/22/21 12:06 Active 10 ml FLUSH ASDIRECTED PRN Saline Lock Insert [OM.PC] Stat Oth 10/22/21 12:06 Ordered Medication Orders Sodium Chloride (Normal Saline) 100 mls @ 60 mls/hr IV ASDIRECTED JAD Last Admin: 10/22/21 13:43 Dose: 60 mls/hr Documented by: JAIME Sodium Chloride (Sodium Chloride 0.9% 10 Ml Syringe) 10 ml FLUSH ASDIRECTED PRN PRN Reason: Keep Vein Open Last Admin: 10/22/21 12:32 Dose: 10 ml Documented by: HUSSAIN Labs: Laboratory Tests 10/22/21 10/22/21 10/22/21 Range/Units 11:50 12:31 12:31 WBC 18.89 H (4.23-9.07) K/mm3 RBC 6.33 H (4.63-6.08) M/mm3 Hgb 17.3 D (13.7-17.5) gm/dl Hct 52.3 H (40.1-51.0) % MCV 82.6 (79.0-92.2) fl MCH 27.3 (25.7-32.2) pg MCHC 33.1 (32.2-35.5) g/dl RDW Std Deviation 44.9 H (35.1-43.9) fL Plt Count 473 H D (163-337) K/mm3 MPV 9.1 L (9.4-12.3) fl Neut % (Auto) 82.2 H (34.0-67.9) % Lymph % (Auto) 10.8 L (21.8-53.1) % [place] % (Auto) 5.3 (5.3-12.2) % Eos % (Auto) 1.1 (0.8-7.0) Baso % (Auto) 0.2 (0.1-1.2) % Neut # (Auto) 15.53 H (1.78-5.38) K/mm3 Lymph # (Auto) 2.04 (1.32-3.57) K/mm3 [place] # (Auto) 1.00 H (0.30-0.82) K/mm3 Eos # (Auto) 0.20 (0.04-0.54) K/mm3 Baso # (Auto) 0.04 (0.01-0.08) K/mm3 D-Dimer, Quantitative > 35.20 H (0.19-0.50) mg/L Sodium (136-145) mEq/L Potassium (3.5-5.1) mEq/L Chloride (98-107) mEq/L Carbon Dioxide (21-32) mEq/L Anion Gap (5-15) BUN (7-18) mg/dL Creatinine (0.7-1.3) mg/dL Est Cr Clr Drug Dosing mL/min Estimated GFR (MDRD) (>60) mL/min BUN/Creatinine Ratio (14-18) Glucose (70-99) mg/dL Calcium (8.5-10.1) mg/dL Magnesium (1.8-2.4) mg/dL Total Bilirubin (0.2-1.0) mg/dL AST (15-37) U/L ALT (16-63) U/L Alkaline Phosphatase (46-116) U/L C-Reactive Protein (<1.0) mg/dL Total Protein (6.4-8.2) g/dl Albumin (3.4-5.0) g/dl Globulin gm/dL Albumin/Globulin Ratio (1-2) Influenza Type A RNA Negative (NEGATIVE) Influenza Type B RNA Negative (NEGATIVE) SARS-CoV-2 RNA (STEPHANIE) Negative (NEGATIVE) 10/22/21 10/22/21 Range/Units 12:31 16:20 WBC (4.23-9.07) K/mm3 RBC (4.63-6.08) M/mm3 Hgb (13.7-17.5) gm/dl Hct (40.1-51.0) % MCV (79.0-92.2) fl MCH (25.7-32.2) pg MCHC (32.2-35.5) g/dl RDW Std Deviation (35.1-43.9) fL Plt Count (163-337) K/mm3 MPV (9.4-12.3) fl Neut % (Auto) (34.0-67.9) % Lymph % (Auto) (21.8-53.1) % [place] % (Auto) (5.3-12.2) % Eos % (Auto) (0.8-7.0) Baso % (Auto) (0.1-1.2) % Neut # (Auto) (1.78-5.38) K/mm3 Lymph # (Auto) (1.32-3.57) K/mm3 [place] # (Auto) (0.30-0.82) K/mm3 Eos # (Auto) (0.04-0.54) K/mm3 Baso # (Auto) (0.01-0.08) K/mm3 D-Dimer, Quantitative > 35.20 H (0.19-0.50) mg/L Sodium 135 L (136-145) mEq/L Potassium 5.0 (3.5-5.1) mEq/L Chloride 99 (98-107) mEq/L Carbon Dioxide 19 L (21-32) mEq/L Anion Gap 22.0 H (5-15) BUN 30 H (7-18) mg/dL Creatinine 1.6 H (0.7-1.3) mg/dL Est Cr Clr Drug Dosing 59.57 mL/min Estimated GFR (MDRD) 47 (>60) mL/min BUN/Creatinine Ratio 18.8 H (14-18) Glucose 154 H (70-99) mg/dL Calcium 10.1 (8.5-10.1) mg/dL Magnesium 2.2 (1.8-2.4) mg/dL Total Bilirubin 0.5 (0.2-1.0) mg/dL AST 35 (15-37) U/L ALT 62 (16-63) U/L Alkaline Phosphatase 131 H (46-116) U/L C-Reactive Protein 2.0 H* (<1.0) mg/dL Total Protein 8.7 H (6.4-8.2) g/dl Albumin 4.7 (3.4-5.0) g/dl Globulin 4.0 gm/dL Albumin/Globulin Ratio 1.2 (1-2) Influenza Type A RNA (NEGATIVE) Influenza Type B RNA (NEGATIVE) SARS-CoV-2 RNA (STEPHANIE) (NEGATIVE) Meds: Medications Generic Name Dose Route Start Last Admin Trade Name Freq PRN Reason Stop Dose Admin Sodium Chloride 100 mls @ 60 mls/hr 10/22/21 13:45 10/22/21 13:43 Normal Saline IV 60 mls/hr ASDIRECTED JAD Administration Sodium Chloride 10 ml 10/22/21 12:06 10/22/21 12:32 Sodium Chloride 0.9% 10 Ml Syringe FLUSH 10 ml ASDIRECTED PRN Administration Keep Vein Open Discontinued Medications Generic Name Dose Route Start Last Admin Trade Name Jaswinderq PRN Reason Stop Dose Admin Diphenhydramine HCl 50 mg 10/22/21 13:11 10/22/21 13:27 Diphenhydramine 50 Mg/Ml Sdv IVPUSH 10/22/21 13:12 50 mg ONETIME ONE Administration Sodium Chloride 1,000 mls @ 999 mls/hr 10/22/21 13:02 10/22/21 13:25 Normal Saline IV 10/22/21 14:02 999 mls/hr ONETIME ONE Administration Sodium Chloride 1,000 mls @ 999 mls/hr 10/22/21 15:21 10/22/21 15:40 Normal Saline IV 10/22/21 16:21 999 mls/hr ONETIME ONE Administration Iopamidol 100 ml 10/22/21 13:41 10/22/21 13:43 Iopamidol 755 Mg/Ml 100 Ml Bottle IVPUSH 10/22/21 13:42 100 ml ONETIME ONE Administration Metoclopramide HCl 10 mg 10/22/21 13:11 10/22/21 13:25 Metoclopramide 10 Mg/2 Ml Sdv IVPUSH 10/22/21 13:12 10 mg ONETIME ONE Administration Ondansetron HCl 4 mg 10/22/21 12:06 10/22/21 12:32 Ondansetron 4 Mg/2 Ml Sdv IVPUSH 10/22/21 12:07 4 mg ONETIME ONE Administration Sodium Chloride 10 ml 10/22/21 13:41 10/22/21 13:43 Sodium Chloride 0.9% 10 Ml Syringe FLUSH 10/22/21 13:42 10 ml ONETIME ONE Administration - Radiology Interpretation Free Text/Narrative:: Radiologist impression portable view of the chest: Heart size and mediastinum a re within normal limits. Lungs are clear with no acute parenchymal change. Bony structures show nothing acute. Impression: 1. Nothing acute is seen on portable chest x-ray. - Re-Assessments/Exams Free Text/Narrative Re-Assessment/Exam: 10/22/21 13:13 Patient states that Zofran has made him feel about 50% better however is still significantly nauseated. Will medicate the patient with Reglan 10 mg IV as well as Benadryl 50 mg to prevent any extrapyramidal side effects due to the fact that the patient does take duloxetine. 10/22/21 13:25 D-dimer is elevated at greater than 35.20. I have ordered for the patient to have a CT of the lungs. 10/22/21 13:45 Hematology reveals a WBC of 18.89, hemoglobin 17.3, hematocrit 52.3, platelet count 473 Coagulation reveals a D-dimer of greater than 35.20 Chemistry reveals a sodium of 135, potassium 5.0, chloride 99, carbon dioxide 19, anion gap 22.0, BUN 30, creatinine 1.6, GFR 47, glucose 154, magnesium 2.2, alkaline phosphatase 131, C-reactive protein 2.0 Patient is negative for influenza a and B as well as Covid. 10/22/21 14:[address] of the chest: Pulmonary arteries are not optimally opacified. There are no findings of pulmonary embolism within the main or proximal segmental branches. Smaller distal pulmonary emboli could easily be missed. Thoracic aorta shows no aneurysm. Mediastinum shows no adenopathy. No pericardial thickening is seen. Heart size is normal. No axillary adenopathy is seen. Visualized upper abdominal structures show fatty infiltration within the liver. Small area of accessory splenic tissue is seen next to the spleen. Lung window settings were reviewed. No acute parenchymal changes seen. No pleural effusions are seen. No pneumothorax is seen. Bone window settings were reviewed which show scattered to space narrowing and endplate spurring within the spine. No acute osseous abnormalities appreciated. Impression: 1. Suboptimal opacification of the pulmonary arteries. No findings of pulmonary embolism are seen within the main pulmonary arteries or within the proximal segmental branches. Morbid distal pulmonary emboli could be missed. 2. Fatty infiltration within the liver. 3. Nothing acute is otherwise seen on CT study of the chest. I have ordered ultrasound of the bilateral lower extremities to rule out DVT. Patient did state that he has had a lot of leg cramping that started today however there is no areas of tenderness, warmth or redness noted to the bilateral lower extremities. 10/22/21 16:22 Radiologist impression bilateral lower extremity deep venous ultrasound: Normal phasic flow, augmentation and compression are seen. Impression: 1. No evidence of deep venous thrombosis within the right or left lower extremities. 10/22/21 17:04 Patient's repeat D-dimer is greater than 35.2 despite receiving 2 L of fluid. Patient states he is feeling 100% better. Patient will be discharged to home. Recommend that he follow-up with his primary care provider tomorrow or Wednesday at the latest. He does verbalize understanding of this and states he will call first thing in the morning to make an appointment. Has also been given strong return precautions. Departure - Departure Time of Disposition: 17:06 Disposition: Home, Self-Care 01 Condition: Fair Clinical Impression: Gastroenteritis, Elevated d-dimer - Discharge Information Instructions: Nausea and Vomiting, Adult, [id number], Food Choices to Help Relieve Diarrhea, Adult Referrals: Moni Bartholomew PA-C [Primary Care Provider] - Forms: ED Department Discharge Additional Instructions: You were seen in the emergency department today and evaluated. Lab studies were completed which did show you have significantly dehydrated. However, as discussed the study called a D-dimer was checked and was significantly elevated. We did do a CT scan of your lungs to rule out blood clot and this was negative as well as testing for blood clots in your legs which were also negative. You did receive 2 L of IV fluids and nausea medication and this did seem to help. Recommend that you go home and get plenty of rest, drink plenty of fluids. Recommend clear liquid diet for the next 24 hours and then advance to a bland diet as tolerated. Follow-up with Omayra Quijano in the clinic either tomorrow or Wednesday at the latest. Should your condition worsen or change, do not hesitate returning to the emergency department. Sepsis Event Note (ED) - Focused Exam Vital Signs: Vital Signs Temp Pulse Resp BP Pulse Ox 10/22/21 11:46 96.2 F L 127 H 20 125/87 94 L - My Orders Last 24 Hours: My Active Orders 10/22/21 12:06 Sodium Chloride 0.9% [Saline Flush] 10 ml FLUSH ASDIRECTED PRN Saline Lock Insert [OM.PC] Stat 10/22/21 13:45 Sodium Chloride 0.9% [Normal Saline] 100 ml IV ASDIRECTED - Assessment/Plan Last 24 Hours: My Active Orders 10/22/21 12:06 Sodium Chloride 0.9% [Saline Flush] 10 ml FLUSH ASDIRECTED PRN Saline Lock Insert [OM.PC] Stat 10/22/21 13:45 Sodium Chloride 0.9% [Normal Saline] 100 ml IV ASDIRECTED
[2021-10-22] MEDS ORDERED: Sodium Chloride 0.9% 1,000 ML IV ONE ×2 (13:02→15:21)
[2021-10-22] MEDS ORDERED: Metoclopramide 10 MG/2 ML SDV IVPUSH ONE (13:11)
[2021-10-22] MEDS ORDERED: diphenhydrAMINE 50 MG/ML SDV IVPUSH ONE (13:11)
[2021-10-22] MEDS ORDERED: Sodium Chloride 0.9% 10 ML Syringe FLUSH ONE (13:41)
[2021-10-22] MEDS ORDERED: Iopamidol 755 Mg/ML 100 ML Bottle IVPUSH ONE (13:41)
[2021-10-22] MEDS ORDERED: Sodium Chloride 0.9% 100 ML IV SCH (13:45)
--- NOTE | 2021-10-22 14:11 | CT ---
CT chest Technique: Multiple axial sections through the chest were obtained. Intravenous contrast was utilized. Study has been performed as a pulmonary angiogram protocol. Comparison: Prior chest x-ray performed earlier on the same day (12:14 PM). Findings: Pulmonary arteries are not optimally opacified. There are no findings of pulmonary embolism within the main or proximal segmental branches. Smaller distal pulmonary emboli could easily be missed. Thoracic aorta shows no aneurysm. Mediastinum shows no adenopathy. No pericardial thickening is seen. Heart size is normal. No axillary adenopathy is seen. Visualized upper abdominal structures show fatty infiltration within the liver. Small area of accessory splenic tissue is seen next to the spleen. Lung window settings were reviewed. No acute parenchymal change is seen. No pleural effusions are seen. No pneumothorax is seen. Bone window settings were reviewed which show scattered disc space narrowing and endplate spurring within the spine. No acute osseous abnormality is appreciated. Impression: 1. Suboptimal opacification of the pulmonary arteries. No findings of pulmonary embolism are seen within the main pulmonary arteries or within the proximal segmental branches. More distal pulmonary emboli could be missed. 2. Fatty infiltration within the liver. 3. Nothing acute is otherwise seen on CT study of the chest. Diagnostic code #3
--- NOTE | 2021-10-22 16:20 | US ---
Bilateral lower extremity deep venous ultrasound: Duplex and color Doppler evaluation was obtained of the right and left common femoral, proximal greater saphenous, superficial femoral, popliteal, posterior tibial and peroneal veins. Comparison: No prior venous imaging is available. Findings: Normal phasic flow, augmentation and compression are seen. Impression: 1. No evidence of deep venous thrombosis within the right or left lower extremities. Diagnostic code #1
== END 2021-10-22 17:54 | disposition home or self-care (01) ==
LOC: JD.ED 11:27
DX: K52.9 Noninfective gastroenteritis and colitis, unspecified (principal); R79.1 Abnormal coagulation profile; E78.00 Pure hypercholesterolemia, unspecified; I10 Essential (primary) hypertension; K21.9 Gastro-esophageal reflux disease without esophagitis; E11.9 Type 2 diabetes mellitus without complications; M10.9 Gout, unspecified; E66.9 Obesity, unspecified; Z68.41 Body mass index [BMI] 40.0-44.9, adult; Z88.8 Allergy status to other drugs, medicaments and biological substances; Z79.899 Other long term (current) drug therapy; Z20.822 Contact with and (suspected) exposure to COVID-19
CPT/HCPCS: 0240U; 36415; 71045; 71275; 80053; 83735; 85025; 85379; 86140; 93970; 96374; 96375; 99284; J1200; J2405; J2765; J7030; Q9967

== ENCOUNTER 2021-11-03 08:05 | Emergency (ER) | payer BC ==
[2021-11-03 08:31] VITALS: BP 169/99; PULSE 102
[2021-11-03] MEDS ORDERED: Colchicine 0.6 MG Tab PO ONE (08:53)
[2021-11-03] MEDS ORDERED: Acetaminophen/HYDROcodone 325-5 MG Tab PO ONE (08:54)
--- NOTE | 2021-11-03 09:01 | EDM.PDOC ---
ED HPI GENERAL MEDICAL PROBLEM - General Chief Complaint: Lower Extremity Injury/Pain Stated Complaint: ANKLE PAIN Time Seen by Provider: 11/03/21 08:30 Source of Information: Reports: Patient, RN Notes Reviewed History Limitations: Reports: No Limitations - History of Present Illness INITIAL COMMENTS - FREE TEXT/NARRATIVE: Patient is a 45-year-old male who presents to the ER for evaluation of his left ankle/foot pain. States that the pain came on suddenly at around 3 AM this morning, he has pain in his left great toe, foot and ankle. States that he has had gout flares in the past, and states this feels fairly similar. States that colchicine has worked well for him in the past. He did not take anything for the pain at home. Patient denies any other sick-like symptoms, fever/chills, cough/shortness of breath, nausea/vomiting/diarrhea. PCP is Omayra Bartholomew. Left Ankle Pain Score (Numeric/FACES): 10 - Related Data Allergies Allergy/AdvReac Type Severity Reaction Status Date / Time meloxicam [From Mobic] AdvReac Severe "kidney Verified 11/03/21 08:31 concerns" Home Meds: Home Meds Metoprolol Succinate [Toprol XL] 50 mg PO DAILY 02/16/16 [History] Furosemide [Lasix] 40 mg PO DAILY 03/24/16 [History] DULoxetine [Cymbalta] 30 mg PO DAILY 02/25/19 [History] DULoxetine [Cymbalta] 60 mg PO DAILY 10/18/20 [History] Multivitamin 1 tab PO DAILY 10/18/20 [History] Potassium Gluconate [Potassium] 99 mg PO DAILY 10/18/20 [History] Rosuvastatin Calcium [Crestor] 40 mg PO DAILY 10/18/20 [History] lisinopriL [Lisinopril] 40 mg PO DAILY 10/18/20 [History] Esomeprazole Magnesium [Nexium] 40 mg PO DAILY 05/30/21 [History] oxyCODONE HCl/Acetaminophen [Oxycodone-Acetaminophen 5-325] 1 tab PO Q6H PRN #12 tablet 11/03/21 [Rx] Past Medical History HEENT History: Reports: Allergic Rhinitis, Impaired Vision Other HEENT History: wears contacts/glasses Cardiovascular History: Reports: High Cholesterol, Hypertension Other Cardiovascular History: chest pain (none now), angiogram (negative) Respiratory History: Reports: Sleep Apnea Other Respiratory History: wears c-pap Gastrointestinal History: Reports: Chronic Constipation, GERD, Other (See Below) Other Gastrointestinal History: bloating, acid reflux, anal fistula, transaminitis 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 History: Reports: Renal Calculus Musculoskeletal History: Reports: Gout, Other (See Below) Other Musculoskeletal History: ac joint bone spurs, foot pain, elbow pain, bilateral hip pain, bilateral shoulder pain, rotator cuff impingement, right lateral epicondylitis, ankle pain and swelling, foot injury, metarsal bone f racture Psychiatric History: Reports: Anxiety, Depression, Other (See Below) Other Psychiatric History: insomnia, fatigue, panic attacks Endocrine/Metabolic History: Reports: Diabetes, Type II, Obesity/BMI 30+, Vitamin D Deficiency, Other (See Below) Other Endocrine/Metabolic History: metabolic syndrome - Infectious Disease History Infectious Disease History: Reports: Influenza - Past Surgical History HEENT Surgical History: Reports: Myringotomy w Tube(s), Tonsillectomy Cardiovascular Surgical History: Reports: Other (See Below) Other Cardiovascular Surgeries/Procedures: Angiogram GI Surgical History: Reports: Colonoscopy Musculoskeletal Surgical History: Reports: Shoulder Surgery, Other (See Below) Other Musculoskeletal Surgeries/Procedures:: right arm surgery, left shoulder surgery - torn bicep and born spur removed Social & Family History - Family History Family Medical History: No Pertinent Family History - Caffeine Use Caffeine Use: Reports: Coffee, Soda, Tea - Living Situation & Occupation Living situation: Reports: , with Spouse, with Family (6 kids) 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 ED EXAM, GENERAL - Physical Exam Exam: See Below Exam Limited By: No Limitations General Appearance: Alert, WD/WN, No Apparent Distress Respiratory/Chest: No Respiratory Distress, Lungs Clear, Normal Breath Sounds, No Accessory Muscle Use, Chest Non-Tender Cardiovascular: Normal Peripheral Pulses, Regular Rate, Rhythm, No Edema Peripheral Pulses: 2+: Dorsalis Pedis (L), Dorsalis Pedis (R) Extremities: No Pedal Edema, Normal Capillary Refill, Limited Range of Motion (of left foot/ankle d/t pain) Neurological: Alert, Oriented, Normal Cognition, No Motor/Sensory Deficits Psychiatric: Normal Affect, Normal Mood Skin Exam: Warm, Dry, Intact, No Rash, Erythema (mild to left foot), Increased Warmth (mild to left foot) Course - Vital Signs Last Recorded V/S: Last Vital Signs Temp 96.2 F L 11/03/21 08:29 Pulse 102 H 11/03/21 08:29 Resp 18 11/03/21 08:29 BP 169/99 H 11/03/21 08:29 Pulse Ox 100 11/03/21 08:29 - Orders/Labs/Meds Meds: Medications Discontinued Medications Generic Name Dose Route Start Last Admin Trade Name Freq PRN Reason Stop Dose Admin Hydrocodone Bitart/Acetaminophen 2 tab 11/03/21 08:54 11/03/21 09:04 Acetaminophen/Hydrocodone 325-5 Mg Tab PO 11/03/21 08:55 2 tab ONETIME ONE Administration Colchicine 1.8 mg 11/03/21 08:53 11/03/21 09:05 Colchicine 0.6 Mg Tab PO 11/03/21 08:54 1.8 mg ONETIME ONE Administration - Re-Assessments/Exams Free Text/Narrative Re-Assessment/Exam: 11/03/21 09:00 Patient presents to the ER for evaluation of his left foot/ankle pain. Clinically consistent with gout. We will try colchicine, and give him oral [place] at this time for ongoing pain management. Plan will be to send the patient home with a few tablets of pain medication and have him follow-up with his regular care provider this week if not feeling much better. Departure - Departure Time of Disposition: 09:03 Disposition: Home, Self-Care 01 Condition: Good Clinical Impression: Gout of left ankle Qualifiers: Gout etiology: idiopathic Chronicity: acute Qualified Code(s): M10.072 - Idiopathic gout, left ankle and foot - Discharge Information *PRESCRIPTION DRUG MONITORING PROGRAM REVIEWED*: Yes *COPY OF PRESCRIPTION DRUG MONITORING REPORT IN PATIENT LUCY: No Prescriptions: oxyCODONE HCl/Acetaminophen [Oxycodone-Acetaminophen 5-325] 1 tab PO Q6H PRN #12 tablet PRN Reason: Pain Instructions: Low-Purine Eating Plan, Gout, [id number] Referrals: Moni Bartholomew PA-C [Primary Care Provider] - Forms: ED Department Discharge, ED Return to Work/School Form Additional Instructions: You were evaluated in the ER today for your left foot and ankle pain. Clinical course is consistent with gout, and you were treated with colchicine in the ER. You have been given a few tablets of pain medication to help cut down the pain over the next few days. However colchicine should take in shortly and you should feel much better. You were given a prescription for a strong pain medication, oxycodone/acetaminophen 5/325 mg, please take 1 tab every 6 hours as needed for pain not relieved by Tylenol or ibuprofen alone. Please note this medication does contain Tylenol in it, so do not take more than 4000 mg in a 24-hour time span. These medications can be addictive, so please take as few as possible to achieve adequate pain control. These meds can also be quite constipating, r ecommend that you increase your oral fluid intake and take a stool softener like MiraLAX while taking these medications. Do not drive while taking this medication. This medication was electronically sent to the [place] [facility] located in the [employer] store. Recommend you follow-up with your regular care provider sometime this week if symptoms not much better. I would talk with your provider to see if the uric acid reducing agent would be beneficial to your clinical course to help prevent further gout flares. Do not hesitate to return to the ER at any time if symptoms change or worsen. Thank you for allowing and choosing us to be involved in your healthcare needs. Sepsis Event Note (ED) - Evaluation Sepsis Screening Result: No Definite Risk - Focused Exam Vital Signs: Vital Signs Temp Pulse Resp BP Pulse Ox 11/03/21 08:29 96.2 F L 102 H 18 169/99 H 100
== END 2021-11-03 09:33 | disposition home or self-care (01) ==
LOC: JD.ED 08:05
DX: M10.072 Idiopathic gout, left ankle and foot (principal); E78.00 Pure hypercholesterolemia, unspecified; I10 Essential (primary) hypertension; K21.9 Gastro-esophageal reflux disease without esophagitis; E11.9 Type 2 diabetes mellitus without complications; E66.9 Obesity, unspecified; Z68.41 Body mass index [BMI] 40.0-44.9, adult; Z88.8 Allergy status to other drugs, medicaments and biological substances
CPT/HCPCS: 99283; A9270

== ENCOUNTER 2022-12-18 06:51 | Emergency (ER) | payer BC ==
[2022-12-18 09:33] VITALS: BP 143/84; PULSE 78
== END 2022-12-18 09:33 | disposition home or self-care (01) ==
LOC: JD.ED 06:51
DX: S09.90XA Unspecified injury of head, initial encounter (principal); S16.1XXA Strain of muscle, fascia and tendon at neck level, initial encounter; E78.00 Pure hypercholesterolemia, unspecified; I10 Essential (primary) hypertension; K21.9 Gastro-esophageal reflux disease without esophagitis; M10.9 Gout, unspecified; E11.9 Type 2 diabetes mellitus without complications; E66.9 Obesity, unspecified; Z68.42 Body mass index [BMI] 45.0-49.9, adult; Z88.8 Allergy status to other drugs, medicaments and biological substances; Z79.899 Other long term (current) drug therapy; W01.0XXA Fall on same level from slipping, tripping and stumbling without subsequent striking against object, initial encounter
CPT/HCPCS: 70450; 70450-26; 72040; 72040-26; 99283; 99284

== ENCOUNTER 2024-02-03 08:21 | Emergency (ER) | payer BC ==
[2024-02-03] MEDS: predniSONE 20 MG Tab PO ONE (08:59)
[2024-02-03 10:28] VITALS: BP 136/95; PULSE 79
== END 2024-02-03 10:27 | disposition home or self-care (01) ==
LOC: JD.ED 08:21
DX: M10.9 Gout, unspecified (principal); I10 Essential (primary) hypertension; K21.9 Gastro-esophageal reflux disease without esophagitis; E11.9 Type 2 diabetes mellitus without complications; Z79.899 Other long term (current) drug therapy; Z88.8 Allergy status to other drugs, medicaments and biological substances
CPT/HCPCS: 99283; J7512

== ENCOUNTER 2024-07-12 11:33 | Emergency (ER) | payer BC ==
[2024-07-12 12:09] LABS: BASOPHILS ABSOLUTE AUTO 0.1 K/mm3 (0.0-0.2); BASOPHILS PERCENT AUTO 0.7 % (0.0-1.0); EOSINOPHILS ABSOLUTE AUTO 0.2 K/mm3 (0.0-0.4); EOSINOPHILS PERCENT AUTO 2.5 % (0.0-6.0); HEMOGLOBIN 17.2 gm/dl (14.0-18.0); IMMATURE GRAN ABSOLUTE AUTO 0.02 K/mm3 (0.00-0.05); IMMATURE GRAN PERCENT AUTO 0.2 % (0.0-0.4); LYMPHOCYTES ABSOLUTE AUTO 3.3 K/mm3 (1.0-4.8); LYMPHOCYTES PERCENT AUTO 33.9 % (24.0-44.0); MEAN CORPUSCULAR HGB CONC 34.4 g/dl (32.0-36.0); MEAN CORPUSCULAR VOLUME 81.4 fl (83.0-99.0); MONOCYTES ABSOLUTE AUTO 0.6 K/mm3 (0.0-0.8); MONOCYTES PERCENT AUTO 6.3 % (0.0-8.0); NEUTROPHILS ABSOLUTE AUTO 5.5 K/mm3 (1.8-7.7); NEUTROPHILS PERCENT AUTO 56.4 % (41.0-71.0); PLATELET COUNT,PLT 358 K/mm3 (150-400); RED BLOOD CELL COUNT 6.14 M/mm3 (4.52-5.90); WHITE BLOOD CELL COUNT,WBC 9.77 K/mm3 (3.9-11.3)
[2024-07-12 12:27] LABS: APPEARANCE,URINE CLEAR (Clear); BILIRUBIN,URINE NEGATIVE (Negative); COLOR,URINE YELLOW (Yellow); GLUCOSE,URINE NEGATIVE (Negative); KETONES,URINE 2+ (Negative); LEUKOCYTE ESTERASE,URINE NEGATIVE (Negative); NITRITE,URINE NEGATIVE (Negative); OCCULT BLOOD,URINE NEGATIVE (Negative); PROTEIN,URINE NEGATIVE (Negative); UROBILINOGEN,URINE 0.2 (0.2-1.0)
[2024-07-12 12:28] LABS: A/G RATIO 1.3 (1-2); ALBUMIN 4.9 g/dl (3.4-5.0); ANION GAP 17.7 (5-15); BILIRUBIN TOTAL 1.1 mg/dL (0.2-1.0); BUN/CREATININE RATIO 8.5 (14-18); CALCIUM 10.3 mg/dL (8.5-10.1); CREATININE 1.3 mg/dL (0.7-1.3); EST CRCL DRUG DOSING (CG) 62.03 mL/min; POTASSIUM,K 2.7 mEq/L (3.5-5.1); PROTEIN TOTAL,TP 8.6 g/dl (6.4-8.2)
[2024-07-12] MEDS: Ketorolac 30 MG/ML SDV IVPUSH ONE (12:32)
[2024-07-12] MEDS: Ondansetron 4 MG/2 ML SDV IVPUSH ONE (12:32)
[2024-07-12] MEDS: Sodium Chloride 0.9% 10 ML Syringe FLUSH PRN ×2 (12:33→12:48)
[2024-07-12] MEDS: Sodium Chloride 0.9% 1,000 ML IV SCH (12:33)
[2024-07-12 12:37] LABS: LACTIC ACID 2.7 mmol/L (0.4-2.0)
[2024-07-12] MEDS: Iopamidol 612 MG/ML 100 ML Bottle IVPUSH ONE (12:47)
[2024-07-12] MEDS ORDERED: Naloxone 0.4 MG/ML SDV IVPUSH PRN (13:12)
[2024-07-12] MEDS: fentaNYL 100 MCG/2 ML SDV IVPUSH ONE (13:32)
[2024-07-12] MEDS: Tamsulosin 0.4 MG Cap.ER PO ONE (13:33)
[2024-07-12] MEDS: Potassium Chloride 10 MEQ in Premix Bag 1 BAG IV SCH (13:33)
[2024-07-12] MEDS: Lactated Ringers 1,000 ML IV ONE (14:15)
[2024-07-12] MEDS: Lactated Ringers 1,000 ML IV SCH (14:59)
[2024-07-12 19:22] VITALS: BP 131/80; PULSE 65
[2024-07-14 21:42] LABS: CALCIUM 10.3 mg/dL (8.6-10.0)
== END 2024-07-12 18:38 | disposition home or self-care (01) ==
LOC: JD.ED 11:33
DX: N13.2 Hydronephrosis with renal and ureteral calculous obstruction (principal); E87.6 Hypokalemia; I10 Essential (primary) hypertension; K21.9 Gastro-esophageal reflux disease without esophagitis; E11.9 Type 2 diabetes mellitus without complications; E66.9 Obesity, unspecified; Z79.899 Other long term (current) drug therapy; Z88.8 Allergy status to other drugs, medicaments and biological substances; Z68.41 Body mass index [BMI] 40.0-44.9, adult
CPT/HCPCS: 36415; 74177; 80053; 81003; 82310; 83605; 83970; 85025; 96361; 96365; 96366; 96375; 99284; A9270; J1885; J2405; J3010; J3480; J3490; J7030; J7120; Q9967

== ENCOUNTER 2024-07-16 16:44 | Emergency (ER) | payer BC ==
[2024-07-16 17:14] VITALS: BP 132/97; PULSE 93
[2024-07-16 20:57] LABS: BASOPHILS ABSOLUTE AUTO 0.1 K/mm3 (0.0-0.2); BASOPHILS PERCENT AUTO 0.7 % (0.0-1.0); EOSINOPHILS ABSOLUTE AUTO 0.3 K/mm3 (0.0-0.4); EOSINOPHILS PERCENT AUTO 3.8 % (0.0-6.0); HEMOGLOBIN 15.2 gm/dl (14.0-18.0); IMMATURE GRAN ABSOLUTE AUTO 0.01 K/mm3 (0.00-0.05); IMMATURE GRAN PERCENT AUTO 0.1 % (0.0-0.4); LYMPHOCYTES ABSOLUTE AUTO 2.9 K/mm3 (1.0-4.8); LYMPHOCYTES PERCENT AUTO 39.2 % (24.0-44.0); MEAN CORPUSCULAR HEMOGLOBIN 28.1 pg (28.0-32.0); MEAN CORPUSCULAR HGB CONC 33.8 g/dl (32.0-36.0); MEAN CORPUSCULAR VOLUME 83.2 fl (83.0-99.0); MEAN PLATELET VOLUME 8.9 fl (9.4-12.4); MONOCYTES ABSOLUTE AUTO 0.6 K/mm3 (0.0-0.8); MONOCYTES PERCENT AUTO 7.8 % (0.0-8.0); NEUTROPHILS ABSOLUTE AUTO 3.6 K/mm3 (1.8-7.7); NEUTROPHILS PERCENT AUTO 48.4 % (41.0-71.0); PLATELET COUNT,PLT 267 K/mm3 (150-400); RED BLOOD CELL COUNT 5.41 M/mm3 (4.52-5.90); WHITE BLOOD CELL COUNT,WBC 7.43 K/mm3 (3.9-11.3)
[2024-07-16 21:17] LABS: A/G RATIO 1.2 (1-2); ALBUMIN 4.2 g/dl (3.4-5.0); ANION GAP 11.6 (5-15); BILIRUBIN TOTAL 0.7 mg/dL (0.2-1.0); BUN/CREATININE RATIO 9.1 (14-18); CALCIUM 9.9 mg/dL (8.5-10.1); CREATININE 1.1 mg/dL (0.7-1.3); EST CRCL DRUG DOSING (CG) 83.88 mL/min; MAGNESIUM 1.7 mg/dL (1.8-2.4); POTASSIUM,K 3.6 mEq/L (3.5-5.1); PROTEIN TOTAL,TP 7.6 g/dl (6.4-8.2)
[2024-07-16] MEDS: Sodium Chloride 0.9% 1,000 ML IV ONE (21:39)
[2024-07-16 21:46] LABS: APPEARANCE,URINE SLT CLOUDY (Clear); BILIRUBIN,URINE 1+ (Negative); COLOR,URINE DARK YELLOW (Yellow); GLUCOSE,URINE NEGATIVE (Negative); KETONES,URINE TRACE (Negative); LEUKOCYTE ESTERASE,URINE NEGATIVE (Negative); NITRITE,URINE NEGATIVE (Negative); OCCULT BLOOD,URINE TRACE-INTACT (Negative); PH,URINE 5.5 (5.0-8.0); PROTEIN,URINE 1+ (Negative); UROBILINOGEN,URINE 0.2 (0.2-1.0)
[2024-07-16] MEDS: Magnesium Oxide 400 MG Tab PO ONE (21:46)
[2024-07-16 22:24] LABS: CORONAVIRUS COVID-19 NAA NEGATIVE (NEGATIVE); INFLUENZA A NAA NEGATIVE (NEGATIVE); RESPIRATORY SYNCYTIAL VIR NAA NEGATIVE (NEGATIVE)
[2024-07-16 22:26] LABS: EPITHELIAL CELLS,URINE 0-5 /hpf (0-5); RBC,URINE 0-5 /hpf (0-5); WBC,URINE 0-5 /hpf (0-5)
[2024-07-16 22:27] LABS: BACTERIA,URINE FEW /hpf (FEW); MUCUS,URINE MANY /hpf (FEW)
== END 2024-07-16 23:17 | disposition home or self-care (01) ==
LOC: JD.ED 16:44
DX: R53.83 Other fatigue (principal); I10 Essential (primary) hypertension; E66.9 Obesity, unspecified; E11.9 Type 2 diabetes mellitus without complications; Z88.8 Allergy status to other drugs, medicaments and biological substances; Z79.899 Other long term (current) drug therapy; Z68.39 Body mass index [BMI] 39.0-39.9, adult
CPT/HCPCS: 0241U; 36415; 80053; 81001; 83735; 84443; 85025; 96360; 99284; A9270; J7030; 99283

== ENCOUNTER 2024-07-17 04:56 | Emergency (ER) | payer BC ==
[2024-07-17 05:15] VITALS: BP 145/114; PULSE 82
[2024-07-17] MEDS: Prochlorperazine 10 MG/2 ML SDV IM ONE (05:35)
== END 2024-07-17 05:30 | disposition left against medical advice (07) ==
LOC: JD.ED 04:56
DX: Z53.21 Procedure and treatment not carried out due to patient leaving prior to being seen by health care provider (principal)

== ENCOUNTER 2024-12-19 14:09 | Emergency (ER) | payer BC ==
[2024-12-19 14:38] VITALS: BP 131/97; PULSE 101
[2024-12-19] MEDS ORDERED: Sodium Chloride 0.9% 10 ML Syringe FLUSH PRN (14:46)
[2024-12-19 15:08] LABS: BASOPHILS ABSOLUTE AUTO 0.1 K/mm3 (0.0-0.2); BASOPHILS PERCENT AUTO 0.8 % (0.0-1.0); EOSINOPHILS ABSOLUTE AUTO 0.2 K/mm3 (0.0-0.4); HEMATOCRIT 46.3 % (42.0-52.0); HEMOGLOBIN 15.9 gm/dl (14.0-18.0); IMMATURE GRAN ABSOLUTE AUTO 0.02 K/mm3 (0.00-0.05); IMMATURE GRAN PERCENT AUTO 0.2 % (0.0-0.4); LYMPHOCYTES ABSOLUTE AUTO 3.8 K/mm3 (1.0-4.8); LYMPHOCYTES PERCENT AUTO 36.7 % (24.0-44.0); MEAN CORPUSCULAR HEMOGLOBIN 28.2 pg (28.0-32.0); MEAN CORPUSCULAR HGB CONC 34.3 g/dl (32.0-36.0); MEAN CORPUSCULAR VOLUME 82.1 fl (83.0-99.0); MEAN PLATELET VOLUME 9.1 fl (9.4-12.4); MONOCYTES ABSOLUTE AUTO 0.8 K/mm3 (0.0-0.8); MONOCYTES PERCENT AUTO 7.3 % (0.0-8.0); NEUTROPHILS ABSOLUTE AUTO 5.4 K/mm3 (1.8-7.7); PLATELET COUNT,PLT 286 K/mm3 (150-400); RED BLOOD CELL COUNT 5.64 M/mm3 (4.52-5.90); WHITE BLOOD CELL COUNT,WBC 10.25 K/mm3 (3.9-11.3)
[2024-12-19] MEDS: Alum Hydrox/Mag Hydrox/Simeth 30 ML, Lidocaine 2% 15 ML PO ONE (15:23)
[2024-12-19] MEDS: Aspirin 81 MG Tab.Chew PO ONE (15:23)
[2024-12-19] MEDS: Famotidine 20 MG Tab PO ONE (15:23)
[2024-12-19 15:29] LABS: A/G RATIO 1.2 (1-2); ALBUMIN 4.3 g/dl (3.4-5.0); ANION GAP 17.6 (5-15); BILIRUBIN TOTAL 0.7 mg/dL (0.2-1.0); CALCIUM 9.1 mg/dL (8.5-10.1); EST CRCL DRUG DOSING (CG) 89.36 mL/min; POTASSIUM,K 3.6 mEq/L (3.5-5.1); PROTEIN TOTAL,TP 7.9 g/dl (6.4-8.2)
== END 2024-12-19 18:51 | disposition home or self-care (01) ==
LOC: JD.ED 14:09
DX: R07.2 Precordial pain (principal); I10 Essential (primary) hypertension; K21.9 Gastro-esophageal reflux disease without esophagitis; E11.9 Type 2 diabetes mellitus without complications; E66.9 Obesity, unspecified; Z79.899 Other long term (current) drug therapy; Z88.8 Allergy status to other drugs, medicaments and biological substances; Z67.41 Type O blood, Rh negative
CPT/HCPCS: 36415; 71045; 80053; 84484; 85025; 93005; 99285; A9270